=== PATIENT | female | born 1955 | race Caucasian/White ===

== ENCOUNTER → 2018-12-26 11:38 | Outpatient (CLI) | payer MEDICARE, SELFPAY ==
[2018-12-26 12:18] LABS: Basophils % 0.6 % (0.1-2.0); Eosinophils # 0.4 K/mm3 (0.0-0.4); Eosinophils % 6.1 % (0.1-12.0); Hematocrit 40.4 % (37.0-47.0); Hemoglobin 13.1 g/dL (12.2-16.2); Lymphocytes # 2.3 K/mm3 (0.7-4.5); Lymphocytes % 35.6 % (10-50); Mean Corpuscular HGB Conc 32.3 g/dL (31.8-35.4); Mean Corpuscular Volume 95.7 fl (81-99); Mean Platelet Volume 8.9 fl (7.4-10.4); Monocytes # 0.3 K/mm3 (0.1-1.0); Monocytes % 5.3 % (1.7-9.3); Neutrophils # 3.4 K/mm3 (1.8-7.8); Neutrophils % 52.3 % (37.0-80.0); Platelet Count 205 K/mm3 (142-424); Red Blood Count 4.22 M/mm3 (4.20-5.40); Red Cell Distribution Width 13.6 % (11.5-17.5); White Blood Count 6.5 K/mm3 (4.8-10.8)
[2018-12-26 14:23] LABS: Alanine Aminotransferase 15 U/L (12-78); Albumin/Globulin Ratio 1.1 (1.1-1.8); Alkaline Phosphatase 114 U/L (46-116); Aspartate Amino Transferase 13 U/L (15-37); Bilirubin,Total 0.3 mg/dL (0.2-1.0); Blood Urea Nitrogen 8 mg/dL (7-18); Calcium 9.4 mg/dL (8.5-10.1); Carbon Dioxide 30 mmol/L (21.0-32.0); Chloride 103 mmol/L (98-107); Creatinine,Serum 0.85 mg/dL (0.55-1.02); Estimated Glomerular Filt Rate 68 ml/min (>60); Free T4 (Free Thyroxine) 0.88 ng/dl (0.76-1.46); GFR (African American) 82 ML/MIN (>60); Globulin 3.7 gm/dl (1.3-3.2); Glucose 75 mg/dL (74-106); HDL Cholesterol 44 mg/dL (29-89); Sodium 141 mmol/L (136-145); Thyroid Stimulating Hormone 3.12 uIU/ml (0.358-3.740); Total Protein,Serum 7.7 gm/dL (6.4-8.2); Triglycerides 77 mg/dL (30-200); VLDL Cholesterol 15 mg/dL (0-40)
[2018-12-26 14:43] LABS: Chol/HDL Ratio 5.1 (1-3.5); Cholesterol 224 mg/dL (140-200); LDL Cholesterol 165 mg/dL (0-130)
[2018-12-28 06:07] LABS: Vitamin D 25 Hydroxy 25.3 ng/mL (30.0-100.0)
== END ==
PROVIDERS: Visit Provider Emergency Medicine
DX: I25.10 Atherosclerotic heart disease of native coronary artery without angina pectoris (principal); R53.83 Other fatigue; E55.9 Vitamin D deficiency, unspecified
CPT/HCPCS: 36415; 80053; 80061; 82652; 84439; 84443; 85025

== ENCOUNTER → 2019-01-16 09:38 | Outpatient (CLI) | payer MEDICARE, SELFPAY ==
--- NOTE | 2019-01-16 09:42 | XR_ITS ---
PROCEDURE: XR HIP LT 2-3V W/PELVIS CLINICAL INDICATION: left hip pain COMPARISON: XR HIP RT 2-3V W/PELVIS from 01/16/2019 FINDINGS: There are moderate osteoarthritic changes with osteosclerosis and osteophyte formation with some decrease in the joint space. No acute fracture or dislocation evident. IMPRESSION: Moderate osteoarthritic change Dictated by: Abiel Mary MD 01/16/2019 18:05 Electronically signed by Abiel Mary MD in [place] 01/16/2019 18:05
--- NOTE | 2019-01-16 09:42 | XR_ITS ---
PROCEDURE: XR HIP RT 2-3V W/PELVIS CLINICAL INDICATION: right hip pain COMPARISON: No exams were available for comparison FINDINGS: The there are moderate osteoarthritic changes of the right hip with osteophyte formation and osteosclerosis and some decrease in the joint space. There is diffuse vascular calcification. There is an old right inferior pubic ramus fracture. IMPRESSION: Osteoarthritis, no acute fracture Dictated by: Abiel Mary MD 01/16/2019 18:04 Electronically signed by Abiel Mary MD in [place] 01/16/2019 18:04
== END ==
PROVIDERS: PCP Emergency Medicine; Visit Provider Orthopaedic Surgery
DX: M25.552 Pain in left hip (principal); M25.551 Pain in right hip
CPT/HCPCS: 73502

== ENCOUNTER → 2019-03-09 16:46 | Outpatient (CLI) | payer MEDICARE, SELFPAY ==
[2019-03-09 18:26] LABS: Amphetamine/Metha Screen,Urine Negative ng/mL (<1000); Barbiturates Screen,Urine Negative ng/mL (<200); Benzodiazepines Screen,Urine Negative ng/mL (<200); Cannabinoid Screen,Urine Positive ng/mL (<50); Cocaine Screen,Urine Negative ng/mL (<300); Methadone Screen,Urine Negative ng/mL (<300); Opiate Screen,Urine Negative ng/mL (<300); Phencyclidine Screen,Urine Negative ng/mL (<25)
== END ==
PROVIDERS: Visit Provider Nurse Practitioner Family
DX: Z79.899 Other long term (current) drug therapy (principal)
CPT/HCPCS: 80305

== ENCOUNTER → 2019-03-13 11:58 | Outpatient (CLI) | payer MEDICARE, SELFPAY ==
[2019-03-13 14:11] LABS: Alanine Aminotransferase 10 U/L (12-78); Albumin Level 3.4 gm/dL (3.4-5.0); Alkaline Phosphatase 97 U/L (46-116); Aspartate Amino Transferase 13 U/L (15-37); Bilirubin,Direct 0.1 mg/dL (0.0-0.2); Bilirubin,Indirect 0.1 mg/dL (0.0-0.9); Bilirubin,Total 0.2 mg/dL (0.2-1.0); Chol/HDL Ratio 3.6 (1-3.5); Cholesterol 145 mg/dL (140-200); HDL Cholesterol 40 mg/dL (29-89); LDL Cholesterol 80 mg/dL (0-130); Total Protein,Serum 6.8 gm/dL (6.4-8.2); Triglycerides 126 mg/dL (30-200); VLDL Cholesterol 25 mg/dL (0-40)
== END ==
PROVIDERS: Urology; Visit Provider Nurse Practitioner Family
DX: E78.2 Mixed hyperlipidemia (principal); G25.81 Restless legs syndrome; I10 Essential (primary) hypertension; I25.10 Atherosclerotic heart disease of native coronary artery without angina pectoris; K21.9 Gastro-esophageal reflux disease without esophagitis; R06.09 Other forms of dyspnea; R94.31 Abnormal electrocardiogram [ECG] [EKG]
CPT/HCPCS: 36415; 80061; 80076

== ENCOUNTER → 2019-03-19 13:14 | Outpatient (CLI) | payer MEDICARE, SELFPAY ==
--- NOTE | 2019-03-19 13:14 | CA_ITS ---
APPROVED REPORT EXAM: Comprehensive 2D, Doppler, and color-flow Echocardiogram Staff Attorney: Sonia Braden CRT Ht: 5 ft 5 in Wt: 115lbs BSA: 1.56 BP: 139/71 mmHg ICD: SOB, CAD, ABN EKG Indications: SOB,CAD,ABN EKG 2D Dimensions LVOT 1.91 cm (M/F) 1.5-2.5 M-Mode Dimensions RVDd 1.95 cm (0.9-2.6) LVDd 3.54 cm (3.5-5.7) LVDs 2.24 cm (3.5-5.7) IVSd 1.39 cm (0.6-1.1) PWd 1.02 cm (0.6-1.1) EF (Teich) 67.50% FS 36.70% EDV (Teich) 52.30 mL ESV (Teich) 17.00 mL LV Diastology E/A Ratio 0.78 Mitral Valve MV A Velocity 72.00 (40-130 cm/s) Left Ventricle Left atrium is mildly enlarged, left ventricle is normal size, mild concentric left ventricular hypertrophy, visually estimated ejection fraction 55% with no regional wall motion abnormality, grade 1 diastolic dysfunction seen without tissue Doppler evidence of raise left atrial pressure. Right Ventricle Right atrium and right ventricular normal size and contractility. Aortic Valve Aortic valve is thickened and calcified leaflet continue to display good mobility, there is no aortic stenosis or aortic insufficiency. Mitral Valve Mitral valve is grossly normal, there is mild mitral regurgitation. Tricuspid Valve Tricuspid valve is grossly normal, there is mild tricuspid regurgitation, tricuspid regurgitation jet velocity is inadequate for calculation of the right ventricular systolic pressure. Pulmonic Valve Pulmonic valve is poorly visualized. Great Vessels Aortic root is normal size. Pericardium No significant pericardial effusion noted. Conclusion 1. Mildly enlarged left atrium, normal left ventricular size, mild concentric left ventricular hypertrophy, visually estimated ejection fraction 55% with no regional wall motion abnormality, grade 1 diastolic dysfunction seen without tissue Doppler evidence of raise left atrial pressure. 2. Mild mitral and tricuspid regurgitation. 3. No significant pericardial effusion noted. Electronically signed by : Caden Nails, 03/20/2019 06:16:13
== END ==
PROVIDERS: PCP Emergency Medicine; Visit Provider Urology
DX: E78.2 Mixed hyperlipidemia (principal); G25.81 Restless legs syndrome; I10 Essential (primary) hypertension; I25.10 Atherosclerotic heart disease of native coronary artery without angina pectoris; K21.9 Gastro-esophageal reflux disease without esophagitis; R06.09 Other forms of dyspnea; R94.31 Abnormal electrocardiogram [ECG] [EKG]
CPT/HCPCS: 93306

== ENCOUNTER → 2019-03-28 16:33 | Outpatient (CLI) | payer MEDICARE, SELFPAY ==
[2019-03-28 19:38] LABS: Amphetamine/Metha Screen,Urine Negative ng/mL (<1000); Barbiturates Screen,Urine Negative ng/mL (<200); Benzodiazepines Screen,Urine Positive ng/mL (<200); Cannabinoid Screen,Urine Positive ng/mL (<50); Cocaine Screen,Urine Negative ng/mL (<300); Methadone Screen,Urine Negative ng/mL (<300); Opiate Screen,Urine Negative ng/mL (<300); Phencyclidine Screen,Urine Negative ng/mL (<25)
[2019-04-02 09:10] LABS: Alprazolam Negative (Cutoff=100); Benzodiazepines Positive ng/mL (Cutoff=100); Clonazepam Negative (Cutoff=100); Flurazepam Negative (Cutoff=100); Lorazepam Negative (Cutoff=100); Midazolam Negative (Cutoff=100); Temazepam Positive (.); Triazolam Negative (Cutoff=100)
== END ==
PROVIDERS: Visit Provider Nurse Practitioner Family
DX: Z79.899 Other long term (current) drug therapy (principal)
CPT/HCPCS: 80305; 80346

== ENCOUNTER → 2020-01-21 11:27 | Outpatient (CLI) | payer MEDICARE, SELFPAY ==
--- NOTE | 2020-01-21 11:33 | XR_ITS ---
PROCEDURE: XR CHEST 2V CLINICAL HISTORY: dyspnea COMPARISON: No exams were available for comparison FINDINGS: The cardiomediastinal silhouette and pulmonary vascularity are within normal limits. COPD. Hyperexpansion. Coronary artery stent is noted. Severe wedge compression changes involve L1 No acute bony abnormalities. IMPRESSION: COPD. Severe wedge compression of L1. Dictated by: Abiel Mary MD 01/21/2020 13:08 Abiel Mary MD in [place] 01/21/2020 13:08
--- NOTE | 2020-01-21 11:33 | XR_ITS ---
PROCEDURE: XR HIP RT 2-3V W/PELVIS CLINICAL INDICATION: bilateral hip pain COMPARISON: CR XR HIP RT 2-3V W/PELVIS from 01/16/2019 CR XR HIP LT 2-3V W/PELVIS from 01/16/2019 FINDINGS: There is diffuse vascular calcification. Moderate osteoarthritic changes are present involving the right hip similar to the previous exam. No acute fracture or dislocation. No lytic or blastic change. IMPRESSION: Moderate osteoarthritis of the right hip not significantly changed Dictated by: Abiel Mary MD 01/21/2020 13:14 Abiel Mary MD in [place] 01/21/2020 13:14
--- NOTE | 2020-01-21 11:33 | XR_ITS ---
PROCEDURE: XR HIP LT 2-3V W/PELVIS CLINICAL INDICATION: hip pain COMPARISON: CR XR HIP RT 2-3V W/PELVIS from 01/16/2019 CR XR HIP LT 2-3V W/PELVIS from 01/16/2019 FINDINGS: There are moderate to severe osteoarthritic changes of the left hip with osteophyte formation and osteosclerosis. Surgical clips are present in the central left pelvis. There is diffuse vascular calcification. IMPRESSION: Moderate to severe osteoarthritis of the left hip overall not significantly changed Dictated by: Abiel Mary MD 01/21/2020 13:15 Abiel Mary MD in [place] 01/21/2020 13:15
--- NOTE | 2020-01-21 11:33 | XR_ITS ---
PROCEDURE: XR LUMBAR SPINE 2-3V CLINICAL INDICATION: back pain COMPARISON: No exams were available for comparison FINDINGS: There is severe wedge compression changes involving the L1 vertebral body which appears chronic. There is loss of height centrally of greater than 50 percent and anteriorly of approximately 50 percent. There does appear to be retropulsion of the posterior superior aspect the L1 vertebral body into the spinal canal. Is difficult to determine just how much retropulsion due to slight rotation. The remaining lumbar spine has an unremarkable appearance. There is degenerative disc disease at L1-L2. Incidental vascular calcification is present. Mild dextroscoliosis IMPRESSION: Chronic severe wedge compression changes of L1 with retropulsion of the posterior superior aspect of the L1 vertebral body. Cannot determine the exact degree of retropulsion due to rotation. Consider MRI for more thorough evaluation and to determine any degree of neural impingement. Dictated by: Abiel Mary MD 01/21/2020 13:06 Abiel Mary MD in [place] 01/21/2020 13:06
== END ==
PROVIDERS: PCP Emergency Medicine; Visit Provider Orthopaedic Surgery
DX: M25.551 Pain in right hip (principal); M25.552 Pain in left hip; R06.00 Dyspnea, unspecified; M54.9 Dorsalgia, unspecified
CPT/HCPCS: 71046; 72100; 73502

== ENCOUNTER → 2020-02-11 16:56 | Outpatient (CLI) | payer MEDICARE, SELFPAY ==
[2020-02-11 17:17] LABS: Basophils # 0.1 K/mm3 (0-0.2); Basophils % 0.5 % (0.1-2.0); Eosinophils # 0.2 K/mm3 (0.0-0.4); Eosinophils % 1.5 % (0.1-12.0); Hematocrit 31.6 % (37.0-47.0); Hemoglobin 10.2 g/dL (12.2-16.2); Lymphocytes # 2.3 K/mm3 (0.7-4.5); Lymphocytes % 21.5 % (10-50); Mean Corpuscular HGB Conc 32.3 g/dL (31.8-35.4); Mean Corpuscular Hemoglobin 31.1 pg (27.0-31.2); Mean Corpuscular Volume 96.3 fl (81-99); Mean Platelet Volume 10.3 fl (7.4-10.4); Monocytes # 0.6 K/mm3 (0.1-1.0); Monocytes % 5.4 % (1.7-9.3); Neutrophils # 7.7 K/mm3 (1.8-7.8); Platelet Count 231 K/mm3 (142-424); Red Blood Count 3.28 M/mm3 (4.20-5.40); Red Cell Distribution Width 14.1 % (11.5-17.5); White Blood Count 10.9 K/mm3 (4.8-10.8)
[2020-02-11 17:52] LABS: Erythrocyte Sedimentation Rate 73 mm/hr (0-30)
[2020-02-11 18:13] LABS: Chloride 102 mmol/L (98-107)
[2020-02-11 18:14] LABS: Sodium 138 mmol/L (136-145)
[2020-02-11 18:16] LABS: Alanine Aminotransferase 7 U/L (12-78); Albumin Level 3.8 g/dl (3.5-5.0); Albumin/Globulin Ratio 1.3 (1.1-1.8); Alkaline Phosphatase 82 U/L (38-126); Aspartate Amino Transferase 19 U/L (14-36); Bilirubin,Total 0.3 mg/dl (0.2-1.3); Blood Urea Nitrogen 11 mg/dl (7-17); Carbon Dioxide 30 mmol/L (22.0-30.0); Cholesterol 103 mg/dl (140-200); Estimated Glomerular Filt Rate 63 ml/min (>60); GFR (African American) 77 ML/MIN (>60); Total Protein,Serum 6.8 g/dl (6.3-8.2); Triglycerides 75 mg/dl (30-150); VLDL Cholesterol 15 mg/dL (0-40)
[2020-02-11 18:17] LABS: Calcium 9.5 mg/dl (8.4-10.2); Chol/HDL Ratio 2.4 (1-3.5); Glucose 110 mg/dl (74-100); HDL Cholesterol 43 mg/dl (40-60)
[2020-02-11 18:23] LABS: C-Reactive Protein 0.5 mg/L (0-4)
[2020-02-11 18:28] LABS: Coronavirus 19 IgG Antibody Negative (Negative); Coronavirus 19 IgM Antibody Negative (Negative)
[2020-02-11 18:28] LABS: Direct LDL Cholesterol 49.84 mg/dL (100-129)
[2020-02-11 18:35] LABS: Free T4 (Free Thyroxine) 0.84 ng/dl (0.78-2.19)
[2020-02-11 18:49] LABS: Thyroid Stimulating Hormone 9.93 uIU/mL (0.465-4.68)
== END ==
PROVIDERS: Emergency Medicine; Visit Provider Surgery
DX: E78.5 Hyperlipidemia, unspecified (principal); R06.00 Dyspnea, unspecified; Z03.818 Encounter for observation for suspected exposure to other biological agents ruled out
CPT/HCPCS: 36415; 80053; 80061; 84439; 84443; 85025; 85651; 86140; 86328

== ENCOUNTER → 2020-02-18 16:25 | Outpatient (CLI) | payer MEDICARE, SELFPAY ==
[2020-02-18 19:30] LABS: Coronavirus 19 IgG Antibody Negative (Negative); Coronavirus 19 IgM Antibody Negative (Negative)
== END ==
PROVIDERS: Visit Provider Surgery
DX: Z01.89 Encounter for other specified special examinations (principal); Z12.11 Encounter for screening for malignant neoplasm of colon
CPT/HCPCS: 36415; 86328

== ENCOUNTER 2020-02-19 09:38 | Day surgery (SDC) | payer MEDICARE, SELFPAY ==
[2020-02-14 16:01] VITALS: BMI 15.6
--- NOTE | 2020-02-19 10:27 | HMH.GSPN ---
Subjective Narrative: Patient presented for her rescheduled colonoscopy drinking coffee. She states that she had not taken the second portion of her bowel preparation and her last bowel movement was approximately 12 hours ago and was solid. Therefore her case will be canceled.
== END 2020-02-19 10:38 ==
LOC: OUTP 09:40
PROVIDERS: PCP Emergency Medicine; Visit Provider Surgery
PROC: 0DJD8ZZ Inspection of Lower Intestinal Tract, Via Natural or Artificial Opening Endoscopic (ICD-10-PCS; CPT 45378; principal; 2020-02-19 10:30)
DX: Z53.20 Procedure and treatment not carried out because of patient's decision for unspecified reasons (principal); R19.7 Diarrhea, unspecified; R63.4 Abnormal weight loss; Z68.1 Body mass index [BMI] 19.9 or less, adult
CPT/HCPCS: 45378

== ENCOUNTER → 2020-03-13 11:56 | Outpatient (CLI) | payer MEDICARE, SELFPAY ==
--- NOTE | 2020-03-13 | CA_ITS ---
APPROVED REPORT Exam: Pharmacologic Technologist: Yudi Allen, Ht: 5 ft 5 in Wt: 89 lbs BSA: 1.40 m2 HR: 53 bpm BP: 134/73 mmHg Rhythm: SINUS BRADYCARDIA,NS ST ABNS Medical History Medical History: HTN, Hyperlipidemia Medications: Atenolol,,,,, Asa,,,,, Trazadone,,,,, Gabapentin,,,,, Atorvastatin,,,,, Benazepril,,,,, Albuterol,,,,, Sertraline,,,,, BREo,,,,, LiNZESS,,,,, BuPROPRION,,,,, Allergies: VICODEN Cardiac Risk Factors: HTN, Hyperlipidemia, Smoking Stress Test Details Test: LEXISCAN HR Resting HR: 55 bpm Max Heart Rate (APMHR): 156 bpm Max HR Achieved: 85 bpm Target HR (85% APMHR): 132 bpm % of APMHR: 54 Recovery HR: 72 bpm BP Resting BP: 134.0/73.0 mmHg Max BP: 160.0/82.0 mmHg Recovery BP: 142.0/73.0 mmHg ECG Resting ECG: SINUS BRADYCARDIA,NS ST ABNORMALITIES Clinical Exercise duration: 04:14 min Highest Stage Achieved: Stress ECG Conclusion DURING INFUSION PATIENT HAD MILD SOA AND MALAISE. NO CHEST PAIN. NO ARRHYTHMIAS/ECTOPY. MILD EXAGGERATION OF BASELINE ST ABNORMALITIES. UNREMARKABLE LEXISCAN STRESS. MYOVIEW IMAGES REPORTED SEPARATELY. Electronically signed by : Caden Nails, 03/13/2020 16:18:34
--- NOTE | 2020-03-13 11:56 | NM_ITS ---
APPROVED REPORT Exam: Nuclear Stress Test Indication: CAD, 2 STENTS, HTN, HYPERLIPIDEMIA, TOB USE, FM HX, SOB, ABN EKG Patient Location: Outpatient Stress Tech: Sarah Rodriguez [place] Tech:Lizeth Sparks JENNIFER RT(R)(N) Ht: 5 ft 5 in Wt: 89 lbs Bra Size: 36B HR: 53 bpm BP: 134/73 mmHg BSA: 1.40 m2 BMI: 14.8 History: CAD, 2 STENTS, HTN, HYPERLIPIDEMIA, TOB USE, FM HX, SOB, ABN EKG Procedure: Patient received a 0.4 mg of intravenous Lexiscan, resting heart rate 53 bpm, resting blood pressure 134/73 mmHg, with Lexiscan maximum heart rate achived was 82 bpm which is Less than 85 % of the maximum predicted heart rate and blood pressure was 160/82 mmHg. With Lexiscan, patient denied any complaint of chest pain. Electrocardiogram Resting electrocardiogram showed sinus rhythm, with Lexiscan there is less than 1.[address] segment depression noted from the baseline EKG. The EKG portion of the Lexiscan Myoview is nondiagnostic. Cardiac Stress and Resting SPECT Images: Cardiac Stress and Resting SPECT images were obtained using technetium 99m Myoview 31.6 mCi stress and 10.71 mCi at rest. Gated SPECT for analysis of segmental wall motion and calculation of the ejection fraction also done. Cardiac stress and resting SPECT images show uniform myocardial activity without segmental perfusion abnormality, computer derived ejection fraction is 53% with no regional wall motion abnormality, right ventricle is normal size and contractility. Conclusion: 1. The EKG portion of the Lexiscan Myoview is nondiagnostic. 2. No scintigraphic evidence of reversible ischemia seen, computer derived ejection fraction is 53% with no regional wall motion abnormality, right ventricle is normal size and contractility. 3. Normal Lexiscan Myoview study. Electronically signed by : Caden Nails, 03/13/2020 16:23:53
--- NOTE | 2020-03-13 14:18 | HMH.ITSHM ---
Current Home Medications as stated by this patient Lynsey Farooq or counter sales representative. [] asa atenolol atorvastin gabapentin
== END ==
PROVIDERS: PCP Emergency Medicine; Visit Provider Internal Medicine Cardiovascular Disease
DX: E78.5 Hyperlipidemia, unspecified (principal); I10 Essential (primary) hypertension; I25.10 Atherosclerotic heart disease of native coronary artery without angina pectoris; K21.9 Gastro-esophageal reflux disease without esophagitis; R06.00 Dyspnea, unspecified; R94.31 Abnormal electrocardiogram [ECG] [EKG]; Z01.810 Encounter for preprocedural cardiovascular examination
CPT/HCPCS: 78452; 93017; A9502; J2785

== ENCOUNTER → 2020-04-09 10:23 | Outpatient (CLI) | payer MEDICARE, SELFPAY ==
[2020-04-09 12:14] LABS: Alanine Aminotransferase 9 U/L (12-78); Albumin Level 3.8 g/dl (3.5-5.0); Alkaline Phosphatase 132 U/L (38-126); Aspartate Amino Transferase 20 U/L (14-36); Bilirubin,Direct 0.2 mg/dl (0.0-0.4); Bilirubin,Total 0.2 mg/dl (0.2-1.3); Total Protein,Serum 6.6 g/dl (6.3-8.2)
[2020-04-09 19:04] LABS: Basophils % 0.6 % (0.1-2.0); Eosinophils # 0.2 K/mm3 (0.0-0.4); Hematocrit 29.1 % (37.0-47.0); Lymphocytes # 1.9 K/mm3 (0.7-4.5); Lymphocytes % 26.4 % (10-50); Mean Corpuscular HGB Conc 30.9 g/dL (31.8-35.4); Mean Corpuscular Hemoglobin 28.9 pg (27.0-31.2); Mean Corpuscular Volume 93.7 fl (81-99); Mean Platelet Volume 12.2 fl (7.4-10.4); Monocytes # 0.3 K/mm3 (0.1-1.0); Monocytes % 4.5 % (1.7-9.3); Neutrophils # 4.7 K/mm3 (1.8-7.8); Neutrophils % 65.5 % (37.0-80.0); Platelet Count 169 K/mm3 (142-424); Red Blood Count 3.11 M/mm3 (4.20-5.40); Red Cell Distribution Width 15.3 % (11.5-17.5); White Blood Count 7.2 K/mm3 (4.8-10.8)
[2020-04-09 19:41] LABS: T4 (Thyroxine) 7.8 ug/dl (5.53-11.0)
[2020-04-09 19:55] LABS: Thyroid Stimulating Hormone 2.37 uIU/mL (0.465-4.68)
== END ==
PROVIDERS: Urology; Visit Provider Emergency Medicine
DX: E78.5 Hyperlipidemia, unspecified (principal); I10 Essential (primary) hypertension; I25.10 Atherosclerotic heart disease of native coronary artery without angina pectoris; K21.9 Gastro-esophageal reflux disease without esophagitis; R06.09 Other forms of dyspnea; Z72.0 Tobacco use; D64.9 Anemia, unspecified; R79.89 Other specified abnormal findings of blood chemistry
CPT/HCPCS: 36415; 80076; 84436; 84443; 85025

== ENCOUNTER → 2020-04-14 13:11 | Outpatient (CLI) | payer MEDICARE, SELFPAY ==
[2020-04-14 13:30] LABS: Basophils # 0.1 K/mm3 (0-0.2); Basophils % 0.9 % (0.1-2.0); Eosinophils # 0.3 K/mm3 (0.0-0.4); Eosinophils % 3.2 % (0.1-12.0); Hematocrit 31.3 % (37.0-47.0); Hemoglobin 9.8 g/dL (12.2-16.2); Lymphocytes # 3.6 K/mm3 (0.7-4.5); Lymphocytes % 38.4 % (10-50); Mean Corpuscular HGB Conc 31.3 g/dL (31.8-35.4); Mean Corpuscular Hemoglobin 28.4 pg (27.0-31.2); Mean Corpuscular Volume 90.6 fl (81-99); Mean Platelet Volume 10.3 fl (7.4-10.4); Monocytes # 0.5 K/mm3 (0.1-1.0); Monocytes % 5.7 % (1.7-9.3); Neutrophils # 4.8 K/mm3 (1.8-7.8); Neutrophils % 51.9 % (37.0-80.0); Platelet Count 224 K/mm3 (142-424); Red Blood Count 3.45 M/mm3 (4.20-5.40); Red Cell Distribution Width 15.6 % (11.5-17.5); White Blood Count 9.3 K/mm3 (4.8-10.8)
== END ==
PROVIDERS: Visit Provider Emergency Medicine
DX: R79.9 Abnormal finding of blood chemistry, unspecified (principal)
CPT/HCPCS: 36415; 85025

== ENCOUNTER → 2020-04-30 09:01 | Outpatient (CLI) | payer MEDICARE, SELFPAY ==
[2020-04-30 12:16] LABS: Anion Gap 14.1 mEq/L (5-15); Blood Urea Nitrogen 13 mg/dl (7-17); Calcium 10.1 mg/dl (8.4-10.2); Carbon Dioxide 26 mmol/L (22.0-30.0); Chloride 106 mmol/L (98-107); Estimated Glomerular Filt Rate 72 ml/min (>60); GFR (African American) 87 ML/MIN (>60); Glucose 93 mg/dl (74-100); Potassium 4.1 mmoL/L (3.5-5.1); Sodium 142 mmol/L (136-145)
== END ==
PROVIDERS: Visit Provider Emergency Medicine
DX: I10 Essential (primary) hypertension (principal)
CPT/HCPCS: 36415; 80048

== ENCOUNTER → 2020-05-09 15:20 | Outpatient (CLI) | payer MEDICARE, SELFPAY ==
[2020-05-09 16:29] LABS: Basophils % 0.6 % (0.1-2.0); Eosinophils # 0.1 K/mm3 (0.0-0.4); Eosinophils % 1.5 % (0.1-12.0); Hematocrit 30.6 % (37.0-47.0); Hemoglobin 9.7 g/dL (12.2-16.2); Mean Corpuscular HGB Conc 31.7 g/dL (31.8-35.4); Mean Corpuscular Hemoglobin 27.7 pg (27.0-31.2); Mean Corpuscular Volume 87.4 fl (81-99); Mean Platelet Volume 10.6 fl (7.4-10.4); Monocytes # 0.5 K/mm3 (0.1-1.0); Monocytes % 5.9 % (1.7-9.3); Neutrophils # 5.2 K/mm3 (1.8-7.8); Platelet Count 156 K/mm3 (142-424); White Blood Count 7.8 K/mm3 (4.8-10.8)
[2020-05-09 16:30] LABS: Alanine Aminotransferase 12 U/L (12-78); Albumin Level 4.5 g/dl (3.5-5.0); Albumin/Globulin Ratio 1.3 (1.1-1.8); Alkaline Phosphatase 117 U/L (38-126); Anion Gap 14.8 mEq/L (5-15); Aspartate Amino Transferase 21 U/L (14-36); Bilirubin,Total 0.3 mg/dl (0.2-1.3); Blood Urea Nitrogen 10 mg/dl (7-17); Calcium 9.6 mg/dl (8.4-10.2); Carbon Dioxide 25 mmol/L (22.0-30.0); Chloride 103 mmol/L (98-107); Estimated Glomerular Filt Rate 50 ml/min (>60); GFR (African American) 61 ML/MIN (>60); Globulin 3.5 g/dL (1.3-3.2); Glucose 105 mg/dl (74-100); Potassium 3.8 mmoL/L (3.5-5.1); Sodium 139 mmol/L (136-145)
[2020-05-09 17:34] LABS: Coronavirus 19 IgG Antibody Negative (Negative); Coronavirus 19 IgM Antibody Negative (Negative)
== END ==
PROVIDERS: PCP Emergency Medicine; Visit Provider Orthopaedic Surgery
DX: Z01.818 Encounter for other preprocedural examination (principal); Z11.52 Encounter for screening for COVID-19; M16.11 Unilateral primary osteoarthritis, right hip
CPT/HCPCS: 36415; 80053; 81001; 85025; 86328; 86850

== ENCOUNTER 2020-05-12 11:43 | Inpatient (IN) | payer MEDICARE, SELFPAY ==
[2020-05-06 09:56] VITALS: BMI 15.6
[2020-05-12] VITALS (19 sets, daily range): BP systolic 103–147; BP diastolic 50–85; PULSE 40–63; RESP 12–23; TEMP 36.1–43; O2SAT 92–100
[2020-05-12 08:56] LABS: Microscopic, Urine URINE MICROSCOPIC (MICROSCOPIC)
[2020-05-12 09:03] LABS: Appearance,Urine CLEAR (Clear); Bilirubin,Urine Negative (Negative); Blood, Urine Negative (Negative); Color,Urine YELLOW (Yellow); Glucose,Urine (UA) Negative (Negative); Ketones,Urine Negative (Negative); Leukocyte Esterase,Urine Negative (Negative); Nitrate,Urine Negative (Negative); PH,Urine 6.5 (5.0-8.5); Protein,Urine Negative (Negative); Specific Gravity, Urine 1.015 (1.005-1.030); Urobilinogen,Urine 0.2 EU/dl (0.2)
[2020-05-12 09:11] LABS: Squamous Epithelial Cell,Urine Occasional #/hpf (0-5)
--- NOTE | 2020-05-12 10:39 | HMH.ANESCL ---
[facility] Anesthesia Checklist - Structural Data Admitted From: Home Planned Operative Procedure/s: rtha Consent for Planned Operative Procedure(s) Verified: Yes - Additional verifications Anesthesia Reactions: No Hx Blood Transfusions: No Blood Transfusion Reaction: No - Airway Assessment C-Spine Mobility Assessed: Yes TMJ Mobility Assessed: Yes Dentition: Good Dentition - Neurological Assessment Level of Consciousness: Awake, Alert, Appropriate - Anesthesia Plan Anesthesia Risk discussed: Yes Anesthesia Plan: Verified ASA Class: III Anesthesia Type: MAC w/Spinal [facility] History I have reviewed the patient's past medical history: Yes Medical History: Reports:: Anxiety, Coronary Artery Disease, Depression, Gastroesophageal Reflux Disease(GERD), Hyperlipidemia, Hypertension Denies:: Cancer, Diabetes Mellitus Type 1, Diabetes Mellitus Type 2, Internal Pacemaker, MRSA, Seizures *Have you ever received a pneumonia vaccine?: No *Have you received a flu vaccine this season?: No Other Medical History: Reports: Arthritis. Denies: Blood Transfusion Reaction Anesthesia experience/problems:: none Laterality Cases: Left: Other, Bilateral: Cataract Other Surgeries: Yes: Cardiac Catheterization, Colonoscopy, Coronary Stent, Hysterectomy-Total, Other (eye surgery). No: Pacemaker Amputation: No Fractures: Yes (back fx) - *Social History Last grade of school completed: 7th or 8th Smoking Status: Current every day smoker Tobacco Type: cigarettes # Packs/Day (cigarettes): 1 #Yrs smoked (if former smoker): 40 Alcohol Intake: current Alcohol Intake Frequency:: holidays/special occasions only Substance Use Type: marijuana *Occupational Status:: disabled Housing: house Household Members: other *Travel in the last 8 weeks: None - Psychiatric History Pschychiatric History:: Reports:: Anxiety, Depression Family Hx:: Cancer, Coronary Artery Disease, Diabetes, Hyperlipidemia, Hypertension, Alcoholism
[2020-05-12 11:04] LABS: Microscopic,Cath URINE MICROSCOPIC (MICROSCOPIC)
[2020-05-12 11:36] LABS: Appearance,Urine/Cath CLEAR (Clear); Bilirubin,Cath Negative (Negative); Blood, Urine/Cath Negative (Negative); Color,Urine/Cath YELLOW (Yellow); Glucose,Urine/Cath (UA) Negative (Negative); Ketones,Urine/Cath Negative (Negative); Leukocyte Esterase,Cath Negative (Negative); Nitrate,Cath Negative (Negative); PH,Urine/Cath 7.5 (5.0-8.5); Protein,Urine/Cath Negative (Negative); Urobilinogen,Cath 0.2 EU/dl (0.2)
[2020-05-12 11:44] LABS: Squamous Epithelial Ur./Cath Occasional #/hpf (0-5); WBC,Urine/Cath Occasional #/hpf (0-3)
--- NOTE | 2020-05-12 12:15 | SUR.OPER ---
1215-wound being irrigated with Betadine 17ml's mixed in NS 500ml's for total of 3 minutes per
--- NOTE | 2020-05-12 13:09 | XR_ITS ---
PROCEDURE: XR HIP RT 2-3V W/PELVIS CLINICAL INDICATION: s/p right total hip arthroplasty COMPARISON: CR XR HIP LT 2-3V W/PELVIS from 01/21/2020 FINDINGS: Status post right total hip replacement with good alignment. Soft tissue gas is noted. The acetabular screw projects beyond the rim of the acetabulum into the adjacent soft tissues. Taylor catheter is present. IMPRESSION: Status post total hip replacement with good alignment. Dictated by: Abiel Mary MD 05/12/2020 15:09 Abiel Mary MD in [place] 05/12/2020 15:09
--- NOTE | 2020-05-12 13:09 | P.PN_ITS ---
[facility] Anesthesia Record Part I Intake, IV Amount: 2,300 Estimated blood loss (mL): 200 Urine output (mL): 300 Blood Pressure: 120/50 SaO2: 94 Pulse Rate: 63 Respiratory Rate: 12 Temperature: 97 F Patient is:: Awake, Stable Stable to PACU at:: 13:05
--- NOTE | 2020-05-12 14:22 | HMH.ORTHHP ---
*Admission Date: 05/12/20 *Reason for consult:: Osteoarthritis, right hip-s/p total hip arthroplasty *History of present illness: Patient is a 65-year-old female who has osteoarthritis of her right hip unresponsive to conservative management. She was admitted to hospital following an uncomplicated primary right t total hip arthroplasty today. She has had bilateral hip pain for many years which have gradually gotten worse. She localizes the pain to anterior and lateral aspects of both hip joints with radiation into both thighs. She says her symptoms are worse on the right side than the left. She rates her right hip pain a constant 7 out of 10 and a 10 out of 10 at its worst. She states she has tried physical therapy, local steroid injections, NSAIDs, icing and heat in the past with little to no relief. She states walking, twisting, turning and standing for long periods aggravate her pain. She reports night pain and sleep disturbance. She reports difficulty with activities of daily living and she uses a cane to walk with. She also reports the right side giving out frequently and is at risk of falls and injuring herself. She says she can barely walk 100 yards without discomfort. No history of any previous hip surgery. No history of any knee pain on either side. She reports occasional low back pain that occasionally radiates down the back of her thigh to her foot on the right side. No history of any neurological deficits distally. She states she is disabled due to her eye surgery and does not work. Her medical history includes hypertension, hyperlipidemia, vitamin D deficiency, osteoporosis, GERD, coronary artery disease, neuropathic pain and chronic tobacco abuse. She is a current everyday smoker for a long time. She has history of chronic hep C. A right total hip arthroplasty is indicated to reduce the risk of falls, improve her pain, mobility and quality of life. The surgical and nonsurgical alternatives were discussed in detail with the patient as well as the risks and benefits of the surgery. Please refer to my office note for full details. [facility] History I have reviewed the patient's past medical history: Yes Medical History: Reports:: Anxiety, Coronary Artery Disease, Depression, Gastroesophageal Reflux Disease(GERD), Hyperlipidemia, Hypertension Denies:: Cancer, Diabetes Mellitus Type 1, Diabetes Mellitus Type 2, Internal Pacemaker, MRSA, Seizures *Have you ever received a pneumonia vaccine?: No *Have you received a flu vaccine this season?: No Other Medical History: Reports: Arthritis. Denies: Blood Transfusion Reaction Anesthesia experience/problems:: none Laterality Cases: Left: Other, Bilateral: Cataract Other Surgeries: Yes: Cardiac Catheterization, Colonoscopy, Coronary Stent, Hysterectomy-Total, Other (eye surgery). No: Pacemaker Amputation: No Fractures: Yes (back fx) - *Social History Last grade of school completed: 7th or 8th Smoking Status: Current every day smoker Tobacco Type: cigarettes # Packs/Day (cigarettes): 1 #Yrs smoked (if former smoker): 40 Alcohol Intake: current Alcohol Intake Frequency:: holidays/special occasions only Substance Use Type: marijuana *Occupational Status:: disabled Housing: house Household Members: other *Travel in the last 8 weeks: None - Psychiatric History Pschychiatric History:: Reports:: Anxiety, Depression Family Hx:: Cancer, Coronary Artery Disease, Diabetes, Hyperlipidemia, Hypertension, Alcoholism Review of Systems - Review of Systems Review of systems:: pertinent systems reviewed and negative unless documented below - Constitutional Denies anorexia, Denies chills, Denies fever(s) - Eyes Denies change in vision - ENT Denies abnormal hearing, Denies bleeding gums, Denies dizziness, Denies nosebleed, Denies mouth lesions - *Cardiovascular Denies chest pain, Denies shortness of breath - *Respiratory Denies chest congestion, Denies cough, Denies shortness of breath - *Gastrointesti
--- NOTE | 2020-05-12 14:28 | PC.NURSE ---
1413 Pt alert but drowsy, SaO2 in 91-93% range at this time. 2L O2 applied via NC with SaO2 increasing to 99%.
--- NOTE | 2020-05-12 14:29 | PC.NURSE ---
1324 Report received from Vince Odonnell RN in PACU.
--- NOTE | 2020-05-12 14:45 | HMH.OPNOTE ---
Date of procedure: 05/12/20 Pre-op Diagnosis:: Osteoarthritis, right hip Post-op Diagnosis:: Same Procedure performed:: Uncemented total hip arthroplasty, right hip Surgeon:: Adelfo Collins MD Support Group Manager(s):: Lizeth Silverio JEWEL STRINGER:: Jones Ray Anesthesia: spinal Estimated blood loss (mL): 200 Clinical Note:: Patient is a 65-year-old female who has osteoarthritis of her right hip unresponsive to conservative management. She has had bilateral hip pain for many years which have gradually gotten worse. She localizes the pain to anterior and lateral aspects of both hip joints with radiation into both thighs. She says her symptoms are worse on the right side than the left. She rates her right hip pain a constant 7 out of 10 and a 10 out of 10 at its worst. She states she has tried physical therapy, local steroid injections, NSAIDs, icing and heat in the past with little to no relief. She states walking, twisting, turning and standing for long periods aggravate her pain. She reports night pain and sleep disturbance. She reports difficulty with activities of daily living and she uses a cane to walk with. She also reports the right side giving out frequently and is at risk of falls and injuring herself. She says she can barely walk 100 yards without discomfort. No history of any previous hip surgery. No history of any knee pain on either side. She reports occasional low back pain that occasionally radiates down the back of her thigh to her foot on the right side. No history of any neurological deficits distally. She states she is disabled due to her eye surgery and does not work. Her medical history includes hypertension, hyperlipidemia, vitamin D deficiency, osteoporosis, GERD, coronary artery disease, neuropathic pain and chronic tobacco abuse. She is a current everyday smoker for a long time. She has history of chronic hep C. Radiographs confirmed moderate to severe degenerative arthritis of both hips. Radiologically the left side looks worse than the right but patient is more symptomatic from the right hip. A right total hip arthroplasty is indicated to reduce the risk of falls, improve her pain, mobility and quality of life. The surgical and nonsurgical alternatives were discussed in detail with the patient as well as the risks and benefits of the surgery. Please refer to my office note for full details. Operative findings:: Intraoperatively, moderate degenerative changes of the hip joint were noted. The femoral head is arthritic and misshapen; osteophytes were noted on acetabular side. The capsule was thickened and range of motion was noted to be decreased. The bone quality is good. Operative note:: On the day of the procedure the patient and her friend were met in the preoperative area and the patient was positively identified. A physical examination was performed and documented. The operative site was appropriately marked and initialed by me. I again reviewed the diagnosis, natural history and management options in detail including both nonsurgical and surgical. We discussed the proposed surgery, risks and benefits and alternatives in detail. The complications discussed include but are not limited to infection, injury to nerves, blood vessels and tendons, DVT and PE, fracture, limb length inequality, dislocation, implant malpositioning, implant failure, squeaking, loosening, acetabular wear, osteolysis, periprosthetic femur fracture, heterotopic ossification, abductor weakness and limp, incomplete relief of pain, likely need for further surgery in future including revision, anesthetic complications including heart attack, stroke and even . We also discussed the postoperative recovery and rehabilitation. Patient verbalized a good understanding and wished to proceed with the proposed surgery. Patient understood the risks, agreed to proceed with surgery, signed the consent form and no guarantees or assurances were given or implied. The patient wa
--- NOTE | 2020-05-12 14:47 | PC.NURSE ---
Karolina with OT in to see pt at this time.
--- NOTE | 2020-05-12 15:30 | PC.NURSE ---
1520 Pt more alert, sitting up in bed talking with visitor. SaO2 97-99%, pt had removed O2 herself. Will continue to monitor SaO2 while on room air. Pt voices that she is wanting to go outside to smoke. Pt was previously educated that [facility] is a tobacco free facility and that she is not able to leave the department per MD order. Pt is agreeable to nicotine patch, will call MD for order.
--- NOTE | 2020-05-12 15:49 | HMH.OTEV ---
OT Inpatient Evaluation Rehab OT IP Evaluation Start: 05/12/20 13:24 Freq: ONCE Status: Complete Protocol: Document 05/12/20 15:39 STEVENSONHUGO (Rec: 05/12/20 15:48 STEVENSONHUGO [id number]) Rehab OT IP Assessment Subjective History Patient is a 65-year-old female who has osteoarthritis of her right hip unresponsive to conservative management. She was admitted to hospital following an uncomplicated primary right t total hip arthroplasty today. She has had bilateral hip pain for many years which have gradually gotten worse. She localizes the pain to anterior and lateral aspects of both hip joints with radiation into both thighs. She says her symptoms are worse on the right side than the left. She rates her right hip pain a constant 7 out of 10 and a 10 out of 10 at its worst. She states she has tried physical therapy, local steroid injections, NSAIDs, icing and heat in the past with little to no relief. She states walking, twisting, turning and standing for long periods aggravate her pain. She reports night pain and sleep disturbance. She reports difficulty with activities of daily living and she uses a cane to walk with. She also reports the right side giving out frequently and is at risk of falls and injuring herself. She says she can barely walk 100 yards without discomfort. No history of any previous hip surgery. No history of any knee pain on either side. She reports occasional low back pain that occasionally radiates down the back of her thigh to her foot on the right side. No history of any
--- NOTE | 2020-05-12 15:57 | HMH.PHAVTE ---
[facility] Pharmacy VTE Monitoring - Patient Demographics Admission date: 05/12/20 Report Date: 05/12/20 Time: 15:57 Allergies/Adverse Reactions: Patient Allergies acetaminophen [From Vicodin] Adverse Reaction (Intermediate, Verified 04/30/20 09:29) Vomiting hydrocodone [From Vicodin] Adverse Reaction (Intermediate, Verified 04/30/20 09:29) Vomiting Height: 1.65 m Weight: 42.638 kg Patient Problems: Current Active Problems Osteoarthritis of right hip (Chronic) Status post total hip replacement, right (Acute) Hip pain, bilateral (Chronic) Tobacco use (Chronic) - VTE Risk VTE Score: 5 VTE Risk Level: Low Risk - Prophylaxis VTE Prophylaxis Ordered?: Yes Types of VTE Prophylaxis: IPCS Thigh High Location of Applied Device: Bilateral Lower Extremeties
--- NOTE | 2020-05-12 15:57 | HMH.PHAINT ---
MEDICATION RECONCILIATION COMPLETED ON PATIENT USING EXTERNAL FILL HISTORY FROM PHARMACY AND LIST FROM MD OFFICE. -NICHOL MADRIDD
--- NOTE | 2020-05-12 16:07 | PC.NURSE ---
1605 PT in to see patient.
--- NOTE | 2020-05-12 17:02 | HMH.PTEV ---
Physical Therapy Evaluation Rehab PT IP Evaluation Start: 05/12/20 13:24 Freq: ONCE Status: Active Protocol: Document 05/12/20 16:00 FRANKLIN (Rec: 05/12/20 17:02 [email or web address] [id number]) Subjective/History History History This is the initial IP PT evaluation for Lynsey Farooq. Pt is a 65 y/o female admitted to [facility] s/p R RY. Subjective Subjective Pt reports she still can not feel her legs from nerve block Rehab PT IP Eval Objective Appearance Patient Behavior Appropriate,Cooperative Patient Orientation Person,Place,Time Difficulty following instructions none Speech Pattern Clear,Appropriate Ambulation Patient Able to Ambulate No Balance Sitting Balance Steady, safe Dynamic Sitting Balance Ability Good Transfers Bed Transfer Ability Contact Guard/Hand Hold Chair Transfer Ability Contact Guard/Hand Hold Rehab PT IP prob,goals,plan Problems Date of Evaluation: 05/12/20 PT IP Problems Bed Mobility,Transfers,Gait, Balance,Self care,Safety Rehab Potential Rehab Potential Good Equipment Needs Assistive Devices Rolling / Wheeled Walker Plan PT Intervention Plan Bed Mobility,Transfers,Gait, Balance,Self care,Safety, Therapeutic Exercise PT Plan Frequency BID Duration LOS Discharge Goals Bed Transfer Ability Contact Guard/Hand Hold Sit to Stand Chair Transfer Ability Maximum x 1 (75% assist) Ambulation Assistive Device Rolling Walker Ambulation Distance (feet) 3 Discharge Plan PT Discharge Plan Pt will need rehab at SNF or supervision at home w/ HHPT G -code Required Yes Eval Complexity Eval Charge Codes 05881 - Low Complexity G Codes PT Current Status Mobility PT Current Status Modifier CK-At least 40% but less than 60% impaired, limited or restricted PT Goal Status Mobility PT Goal Status Modifer CK-At least 40% but less than 60% impaired, limited or restricted PHYSICIAN CERTIFICATION: I certify the specified therapy services for Lynsey Farooq are required, authorized, and reviewed every 30 days.
--- NOTE | 2020-05-12 19:19 | PC.NURSE ---
1855 Pt had large emesis at this time, unable to measure related to vomit being on pts bedside table and on the floor. Bed linens changed, assisted pt with cleaning up, gown changed. Emesis bag provided to pt. Pt reports feeling better after vomiting, recently received phenergan. Will continue to monitor.
--- NOTE | 2020-05-12 19:21 | HMH.ACPN2 ---
Internal Medicine - PN: Subj *Date: 05/12/20 *Time: 19:21 Interval history: THR today, doing well post-op except some nausea. Phenergan available. Co-morbid cad w/stents x 2 no ischemic chest pain copd quiescent Exam Vital signs and Labs for Last 24 Hours: Temp Pulse Resp BP Pulse Ox 97.4 F L 55 L 16 117/57 L 96 05/12/20 17:50 05/12/20 17:50 05/12/20 17:50 05/12/20 17:50 05/12/20 17:50 Laboratory Results - last 24 hr 05/12/20 08:30: Urine Color Yellow, Urine Appearance Clear, Urine pH 6.5, Ur Specific [place] 1.015, Urine Protein Negative, Urine Glucose (UA) Negative, Urine Ketones Negative, Urine Blood Negative, Urine Nitrate Negative, Urine Bilirubin Negative, Urine Urobilinogen 0.2, Ur Leukocyte Esterase Negative, Urine WBC 3-5, Ur Squamous Epith Cells Occasional 05/12/20 10:00: Urine Color Yellow, Urine Appearance Clear, Urine pH 7.5, Ur Specific [place] 1.010, Urine Protein Negative, Urine Glucose (UA) Negative, Urine Ketones Negative, Urine Blood Negative, Urine Nitrate Negative, Urine Bilirubin Negative, Urine Urobilinogen 0.2, Ur Leukocyte Esterase Negative, Urine RBC None, Urine WBC Occasional, Ur Squamous Epith Cells Occasional, Urine Bacteria None I & O for Last 24 hours: Intake & Output 05/09/20 05/10/20 05/11/20 05/12/20 23:59 23:59 23:59 23:59 Intake Total 2300 / 2300 Output Total 350 / 350 Balance 1950 / 1950 - Constitutional no acute distress, thin - *Routine HEENT Exam Head: Present: normocephalic Eye: Present: EOMI, PERRL ENT: Present: mucous membranes moist - *Routine Neck Exam Present: supple. Absent: lymphadenopathy - *Routine Respiratory Exam Present: decreased breath sounds, CTA bilaterally. Absent: accessory muscle use - *Routine Cardiovascular Exam Present: RRR, bradycardia - *Routine Abdominal Exam Present: soft, normoactive bowel sounds. Absent: tenderness - *Routine Extremities Exam Absent: calf tenderness - *Routine Skin Exam Present: warm. Absent: rash - *Routine Neurological Exam Present: alert, oriented X3, vision grossly intact, hearing grossly intact. Absent: facial asymmetry Assessment and Plan (1) Hip pain, bilateral Status: Chronic Category: Medical Code(s): M25.551 - Pain in right hip; M25.552 - Pain in left hip (2) Osteoarthritis of right hip Status: Chronic Category: Medical Code(s): M16.11 - Unilateral primary osteoarthritis, right hip (3) Status post total hip replacement, right Status: Acute Category: Surgical Code(s): Z96.641 - Presence of right artificial hip joint (4) Tobacco use Status: Chronic Category: Social Hx Code(s): Z72.0 - Tobacco use (5) Osteoporosis Status: Chronic Category: Medical Code(s): M81.0 - Age-related osteoporosis without current pathological fracture (6) Sinus bradycardia Status: Chronic Category: Medical Code(s): R00.1 - Bradycardia, unspecified (7) CAD (coronary artery disease) Status: Chronic Qualifiers: Coronary Disease-Associated Artery/Lesion type: [place] artery [place] vs. transplanted heart: [place] heart Associated angina: without angina Qualified Code(s): I25.10 - Atherosclerotic heart disease of [place] coronary artery without angina pectoris Category: Medical Code(s): I25.10 - Atherosclerotic heart disease of [place] coronary artery without angina pectoris - Assessment and plan all Dx Assessment and Plan for all problems:: will follow with ortho service
[2020-05-13] VITALS (17 sets, daily range): BP systolic 104–148; BP diastolic 56–74; PULSE 51–56; RESP 16–18; TEMP 36.3–37.6; O2SAT 95–100
--- NOTE | 2020-05-13 04:30 | PC.NURSE ---
PT HAS RESTED WELL THIS SHIFT, MEDICATED FOR PAIN X 2 THIS SHIFT. PT HAS HAD NO FURTHER EPISODES OF VOMITING SINCE START OF THIS SHIFT, VITAL SIGNS STABLE. HR BRADYCARDIC, UNCHANGED. LUNGS CTAB, PT USING INCENTIVE SPIROMETER. IV PATENT. F/C PATENT TO BSC, DARK YELLOW URINE NOTED. WILL LEAVE IN PLACE AND CONTINUE TO MONITOR OUTPUT OF THIS TIME. ABDUCTION PILLOW IN PLACE. DRESSING TO RIGHT HIP REMAINS C/D/I. BOWEL SOUNDS ACTIVE X 4 QUADS, NO FLATUS. TOLERATING REGULAR DIET. CALL LIGHT WITHIN REACH, REINFORCED FOR PT TO REMAIN IN BED. NO FURTHER NEEDS AT THIS TIME
[2020-05-13 08:08] LABS: Anion Gap 8.1 mEq/L (5-15); Blood Urea Nitrogen 10 mg/dl (7-17); Calcium 8.2 mg/dl (8.4-10.2); Carbon Dioxide 28 mmol/L (22.0-30.0); Chloride 100 mmol/L (98-107); Creatinine Clearance Estimated 38 mL/min (50-200); Estimated Glomerular Filt Rate 63 ml/min (>60); GFR (African American) 76 ML/MIN (>60); Glucose 90 mg/dl (74-100); Potassium 4.1 mmoL/L (3.5-5.1); Sodium 132 mmol/L (136-145)
[2020-05-13 08:11] LABS: Basophils % 0.3 % (0.1-2.0); Eosinophils # 0.1 K/mm3 (0.0-0.4); Eosinophils % 1.7 % (0.1-12.0); Hematocrit 24.1 % (37.0-47.0); Lymphocytes % 30.4 % (10-50); Mean Corpuscular HGB Conc 32.4 g/dL (31.8-35.4); Mean Corpuscular Hemoglobin 27.7 pg (27.0-31.2); Mean Corpuscular Volume 85.6 fl (81-99); Mean Platelet Volume 10.2 fl (7.4-10.4); Monocytes # 0.4 K/mm3 (0.1-1.0); Monocytes % 5.8 % (1.7-9.3); Neutrophils # 4.1 K/mm3 (1.8-7.8); Neutrophils % 61.8 % (37.0-80.0); Platelet Count 161 K/mm3 (142-424); Red Blood Count 2.82 M/mm3 (4.20-5.40); Red Cell Distribution Width 16.5 % (11.5-17.5); White Blood Count 6.6 K/mm3 (4.8-10.8)
[2020-05-13 08:13] LABS: Hemoglobin 7.8 g/dL (12.2-16.2)
--- NOTE | 2020-05-13 08:49 | PC.NURSE ---
Lab personnel at bedside for crossmatch.
--- NOTE | 2020-05-13 08:49 | PC.NURSE ---
0838 Blood transfusion consent reviewed with pt and signed.
--- NOTE | 2020-05-13 09:26 | P.PN_ITS ---
[facility] Anesthesia Record Part II Discharge Time: 13:25 Destination: floor PACU nurse assessment reviewed?: Yes Patient Condition:: Good Anesthesia Complications:: None Swallowing reflex intact?: Yes Cyanosis?: No Blood Pressure: 118/71 Pulse Rate: 52 Temperature: 97.4 F Mental Status: Alert & Oriented Pain level:: 2 Nausea and/or vomitting:: None Intake, IV Amount: 2,500
--- NOTE | 2020-05-13 10:02 | HMH.ACPN2 ---
Internal Medicine - PN: Subj *Date: 05/14/20 *Time: 06:51 Interval history: doing better after surg - will begin therapy Exam Vital signs and Labs for Last 24 Hours: Temp Pulse Resp BP Pulse Ox 97.4 F L 52 L 16 118/71 95 05/13/20 09:26 05/13/20 09:26 05/13/20 07:56 05/13/20 09:26 05/13/20 07:56 Laboratory Results - last 24 hr 05/12/20 10:00: Urine Color Yellow, Urine Appearance Clear, Urine pH 7.5, Ur Specific [place] 1.010, Urine Protein Negative, Urine Glucose (UA) Negative, Urine Ketones Negative, Urine Blood Negative, Urine Nitrate Negative, Urine Bilirubin Negative, Urine Urobilinogen 0.2, Ur Leukocyte Esterase Negative, Urine RBC None, Urine WBC Occasional, Ur Squamous Epith Cells Occasional, Urine Bacteria None 05/13/20 07:25: WBC 6.6, RBC 2.82 L, Hgb 7.8 L*, Hct 24.1 L, MCV 85.6, MCH 27.7, MCHC 32.4, RDW 16.5, Plt Count 161, MPV 10.2, Neut % (Auto) 61.8, Lymph % (Auto) 30.4, [place] % (Auto) 5.8, Eos % (Auto) 1.7, Baso % (Auto) 0.3, Neut # (Auto) 4.1, Lymph # (Auto) 2.0, [place] # (Auto) 0.4, Eos # (Auto) 0.1, Baso # (Auto) 0.0 05/13/20 07:25: Sodium 132 L, Potassium 4.1, Chloride 100, Carbon Dioxide 28, Anion Gap 8.1, BUN 10, Creatinine 0.90, Estimated Creat Clear 38, Estimated GFR 63, Est GFR ( Amer) 76, Glucose 90, Calcium 8.2 L 05/13/20 08:56: Crossmatch (AHG) See Detail I & O for Last 24 hours: Intake & Output 05/10/20 05/11/20 05/12/20 05/13/20 11:59 11:59 11:59 11:59 Intake Total 6805 / 6805 Output Total 1150 / 1150 Balance 5655 / 5655 - Constitutional no acute distress - *Routine HEENT Exam Head: Present: normocephalic Eye: Present: EOMI, PERRL ENT: Present: mucous membranes dry - *Routine Neck Exam Present: supple - *Routine Respiratory Exam Absent: respiratory distress - *Routine Cardiovascular Exam Present: RRR - *Routine Abdominal Exam Present: soft - *Routine Skin Exam Present: intact - *Routine Neurological Exam Present: alert, oriented X3, CN II-XII intact - Routine Psychiatric Exam Present: normal affect Assessment and Plan (1) Hip pain, bilateral Status: Chronic Category: Medical Code(s): M25.551 - Pain in right hip; M25.552 - Pain in left hip (2) Osteoarthritis of right hip Status: Chronic Category: Medical Code(s): M16.11 - Unilateral primary osteoarthritis, right hip (3) Status post total hip replacement, right Status: Acute Category: Surgical Code(s): Z96.641 - Presence of right artificial hip joint (4) Tobacco use Status: Chronic Category: Social Hx Code(s): Z72.0 - Tobacco use
--- NOTE | 2020-05-13 10:05 | PC.NURSE ---
Pt is sleeping in intervals, denies any needs/concerns at this time.
--- NOTE | 2020-05-13 11:07 | PC.NURSE ---
[id number] Pt up walking with physical therapy, tolerated activity well. Pt ambulated in hallway with walker. Pt now back to the bed with abductor pillow in place.
--- NOTE | 2020-05-13 11:49 | PC.NURSE ---
Pt will need a rolling walker rather than a cane due to gait and mobility issues.
--- NOTE | 2020-05-13 11:54 | SW/DCPLANNER ---
Addendum entered by Chelsea Steel 05/13/20 13:29: Alona with [facility] has reviewed patient information and stated that rolling walker will be delivered to patients room tomorrow morning. Addendum entered by Chelsea Steel 05/13/20 12:05: Fax number to send PT other to [facility] in [place] is [phone]. Original Note: I have spoke with this patient regarding discharge plans once medically stable for discharge. Patient resides at home alone with is planning to discharge to her daughters house in [facility] at time of discharge. Patient was speaking with daughter at time of visit: patient and daughter agreed they would like to use [facility] in [place] (phone: [phone]) outpatient PT at time of discharge. Patient has also stated that she will need a rolling walker (patient prefer Benny). Patient information and order has been faxed to [facility] for a rolling walker. Patient will also be set up with outpatient PT thru [facility] at time of discharge. Discharge date is unknown at this time.
[2020-05-13 14:19] LABS: Hematocrit 27.3 % (37.0-47.0)
[2020-05-13 14:37] LABS: Hemoglobin 9.1 g/dL (12.2-16.2)
--- NOTE | 2020-05-13 14:54 | HMH.ORTHPN ---
Subjective Date: 05/13/20 Time: 12:30 Principal diagnosis: Status post total hip arthroplasty, right Interval history: Patient is status post right total hip arthroplasty post op day #1. Patient is lying down on the bed; she says she is doing well and reports no problems. Patient has minimal pain and says it's well-controlled with medication. No history of any nausea or vomiting. No history of any cough, chest pain, shortness of breath or palpitations. Patient says she is eating and drinking well. No history of any distal tingling or numbness. She says she has started physical therapy and mobilizing well with the walker. She is being transfused 1 unit of PRBC for low postoperative H&H. PN: Obj Ex Vital signs: Temp Pulse Resp BP Pulse Ox 97.5 F L 51 L 16 146/67 H 98 05/13/20 13:00 05/13/20 13:00 05/13/20 13:00 05/13/20 13:00 05/13/20 13:00 Narrative: Laboratory Results - last 24 hr 05/13/20 07:25: WBC 6.6, RBC 2.82 L, Hgb 7.8 L*, Hct 24.1 L, MCV 85.6, MCH 27.7, MCHC 32.4, RDW 16.5, Plt Count 161, MPV 10.2, Neut % (Auto) 61.8, Lymph % (Auto) 30.4, [place] % (Auto) 5.8, Eos % (Auto) 1.7, Baso % (Auto) 0.3, Neut # (Auto) 4.1, Lymph # (Auto) 2.0, [place] # (Auto) 0.4, Eos # (Auto) 0.1, Baso # (Auto) 0.0 05/13/20 07:25: Sodium 132 L, Potassium 4.1, Chloride 100, Carbon Dioxide 28, Anion Gap 8.1, BUN 10, Creatinine 0.90, Estimated Creat Clear 38, Estimated GFR 63, Est GFR ( Amer) 76, Glucose 90, Calcium 8.2 L 05/13/20 08:56: Blood Type O Positive, Antibody Screen Negative, Crossmatch (AHG) See Detail 05/13/20 14:08: Hgb 9.1 L D, Hct 27.3 L Intake & Output 05/11/20 05/12/20 05/13/20 05/14/20 11:59 11:59 11:59 11:59 Intake Total 6805 / 6805 754 / 754 Output Total 1350 / 1350 Balance 5455 / 5455 754 / 754 Exam General appearance: alert, active, awake, no acute distress Cardiovascular: regular rate & rhythm, normal peripheral pulses Respiratory: No respiratory distress noted, speaks in full sentences ABD: soft and non tender Neuro: alert, awake, oriented x 3 Psych: Appropriate mood and affect On examination of the lower extremities the limb lengths are equal. She has abduction foam between the legs. Thigh and calf are soft and nontender. On examination of the right hip the dressings are clean, dry and intact. No soakage or strike through noted. Distal pulses are 2+. Distal sensation is intact to light touch throughout. No motor deficits noted distally. Postoperative check x-ray satisfactory with good alignment of the total hip arthroplasty components. No complications noted on the x-rays. - Urinary Catheter Management Taylor Cath placed during this visit: no Progress Note: A&P (1) Hip pain, bilateral Status: Chronic (2) Osteoarthritis of right hip Status: Chronic (3) Status post total hip replacement, right Status: Acute (4) Tobacco use Status: Chronic (5) Postoperative anemia due to acute blood loss Status: Acute Assessment and Plan for All Diagnoses:: I have reviewed the clinical findings and progress with the patient. Patient is doing well and reports no problems. She is receiving 1 unit of PRBC and to have recheck H&H after completion. Patient is mobilizing well weightbearing as tolerated on the right side with the walker and to continue the same. Continue DVT prophylaxis. Continue abduction pillow when in bed and continue standard precautions for the posterior approach hip replacement. Discontinue IV fluids, SOFTWARE CONFIGURATION ANALYST. Case management consult regarding discharge planning. Continue medical management as per Dr. Quiroz.
--- NOTE | 2020-05-13 17:27 | PC.NURSE ---
1640 RN reassessment completed at this time. Pt has done very well today. Pt receiving PRN pain medication about Q4H for c/o pain in right hip with report of good relief each time. Pt up with PT today x2 to ambulate in hallway with rollling walker. Pt has been out of bed several times today to void on BSC, tolerating activity well, voiding without any difficulty. Dressing to right hip is C/D/I. Pt refuses ice pack to hip this shift, abductor pillow in place. Lung sounds CTA, no c/o SOA. Abd soft and nontender with BS active in all quads. Pt reports passing gas, no BM this shift. Pt is tolerating regular diet well with no N/V. Pt received 1 unit of PRBCs today per MD order, tolerated transfusion well. Call light within reach, will continue to monitor.
[2020-05-14 04:00] VITALS: BP 134/62; PULSE 59; RESP 17; TEMP 36.8; O2SAT 97
--- NOTE | 2020-05-14 04:30 | PC.NURSE ---
PT HAS RESTED WELL THIS SHIFT, PAIN WELL CONTROLLED WITH PO PAIN MEDICATION. VITAL SIGNS STABLE, PT ABLE TO AMBULATE TO [facility] WITH MINIMAL ASSISTANCE. VOIDING WITHOUT DIFFICULTY. BOWEL SOUNDS ACTIVE X 4 QUADS[address]UCTION PILLOW IN PLACE WHILE IN BED. LUNGS CTAB, USING INCENTIVE SPIROMETER. DRESSING TO RIGHT HIP C/D/I. PT A&O X4, CALL LIGHT WITHIN REACH. WILL CONTINUE TO MONITOR
--- NOTE | 2020-05-14 07:05 | PC.NURSE ---
REPORT RECEIVED FROM Raul IQBAL RN.
[2020-05-14 07:53] VITALS: BP 138/67; PULSE 56; RESP 18; TEMP 36.9; O2SAT 98
[2020-05-14 07:53] LABS: Basophils % 0.2 % (0.1-2.0); Eosinophils # 0.1 K/mm3 (0.0-0.4); Eosinophils % 0.6 % (0.1-12.0); Hemoglobin 9.7 g/dL (12.2-16.2); Lymphocytes # 1.9 K/mm3 (0.7-4.5); Lymphocytes % 18.9 % (10-50); Mean Corpuscular HGB Conc 33.4 g/dL (31.8-35.4); Mean Corpuscular Hemoglobin 28.6 pg (27.0-31.2); Mean Corpuscular Volume 85.6 fl (81-99); Mean Platelet Volume 10.3 fl (7.4-10.4); Monocytes # 0.7 K/mm3 (0.1-1.0); Monocytes % 6.9 % (1.7-9.3); Neutrophils # 7.4 K/mm3 (1.8-7.8); Neutrophils % 73.4 % (37.0-80.0); Platelet Count 151 K/mm3 (142-424); Red Blood Count 3.39 M/mm3 (4.20-5.40); Red Cell Distribution Width 16.3 % (11.5-17.5); White Blood Count 10.1 K/mm3 (4.8-10.8)
[2020-05-14 07:59] VITALS: PULSE 56; O2SAT 98
--- NOTE | 2020-05-14 08:03 | PC.NURSE ---
PT ASSESSED AT THIS TIME. BILATERAL LUNG SOUNDS CLEAR. NO EDEMA NOTED. BILATERAL PEDAL AND TIBIAL PULSES EQUAL AND EASILY PALPATED. PT STATES THAT SHE IS PASSING GAS BUT NO BM. PT STATES THAT THIS IS NORMAL FOR HER AND SHE HAS BEEN TAKING A STOOL SOFTNER SHE IS RECEIVING ORAL NARCOTIC PAIN MEDICATION. PT STATES PAIN 6/10 ON VERBAL SCALE STATING AN ACHING PAIN IN HER R HIP. PT IS ABLE TO TRANSFER TO [facility] AND TOLERATED THIS WELL. PT IS VOIDING LARGE AMOUNTS OF CLEAR STRAW URINE. ICISIONAL R HIP DRESSING IS C/D/I. WILL CONTINUE TO OBSERVE.
[2020-05-14 08:04] LABS: Anion Gap 8.9 mEq/L (5-15); Blood Urea Nitrogen 7 mg/dl (7-17); Calcium 8.7 mg/dl (8.4-10.2); Carbon Dioxide 25 mmol/L (22.0-30.0); Chloride 105 mmol/L (98-107); Creatinine Clearance Estimated 38 mL/min (50-200); Estimated Glomerular Filt Rate 72 ml/min (>60); GFR (African American) 87 ML/MIN (>60); Glucose 99 mg/dl (74-100); Potassium 3.9 mmoL/L (3.5-5.1); Sodium 135 mmol/L (136-145)
--- NOTE | 2020-05-14 08:48 | PC.NURSE ---
PHYSICAL THERAPY AMBULATING PT AROUND UNIT AT THIS TIME. ROLLING WALKER USED AND PT TOLERATING WELL.
--- NOTE | 2020-05-14 09:00 | PC.NURSE ---
DR. SANDS AT BEDSIDE.
--- NOTE | 2020-05-14 10:07 | HMH.ACPN2 ---
Internal Medicine - PN: Subj *Date: 05/14/20 *Time: 10:07 Interval history: Patient sitting up in bed, she reports she is feeling great and ready to be discharged. Anticipate discharge home today per Ortho, patient is in agreement to this Exam Vital signs and Labs for Last 24 Hours: Temp Pulse Resp BP Pulse Ox 98.4 F 56 L 18 138/67 98 05/14/20 07:53 05/14/20 07:59 05/14/20 07:53 05/14/20 07:53 05/14/20 07:59 Laboratory Results - last 24 hr 05/13/20 08:56: Blood Type O Positive, Antibody Screen Negative, Crossmatch (AHG) See Detail 05/13/20 14:08: Hgb 9.1 L D, Hct 27.3 L 05/14/20 06:40: WBC 10.1 D, RBC 3.39 L, Hgb 9.7 L, Hct 29.0 L, MCV 85.6, MCH 28.6, MCHC 33.4, RDW 16.3, Plt Count 151, MPV 10.3, Neut % (Auto) 73.4, Lymph % (Auto) 18.9, [place] % (Auto) 6.9, Eos % (Auto) 0.6, Baso % (Auto) 0.2, Neut # (Auto) 7.4, Lymph # (Auto) 1.9, [place] # (Auto) 0.7, Eos # (Auto) 0.1, Baso # (Auto) 0.0 05/14/20 06:40: Sodium 135 L, Potassium 3.9, Chloride 105, Carbon Dioxide 25, Anion Gap 8.9, BUN 7 D, Creatinine 0.80, Estimated Creat Clear 38, Estimated GFR 72, Est GFR ( Amer) 87, Glucose 99, Calcium 8.7 I & O for Last 24 hours: Intake & Output 05/11/20 05/12/20 05/13/20 05/14/20 23:59 23:59 23:59 23:59 Intake Total 2300 / 2300 5259 / 5259 Output Total 350 / 350 3800 / 3800 Balance 1950 / 1950 1459 / 1459 - Constitutional no acute distress, thin - *Routine HEENT Exam Head: Present: normocephalic Eye: Present: EOMI ENT: Present: mucous membranes dry - *Routine Neck Exam Present: trachea midline. Absent: JVD, tracheal deviation - *Routine Respiratory Exam Present: wheezes - *Routine Cardiovascular Exam Present: RRR. Absent: irregular rhythm - *Routine Abdominal Exam Present: soft, normoactive bowel sounds. Absent: tenderness, firm - *Routine Extremities Exam Present: pulses intact. Absent: full ROM, calf tenderness - *Routine Skin Exam Present: dry, warm, wounds. Absent: intact, cyanosis Comments: Center right hip clean dry and intact - *Routine Neurological Exam Present: alert, oriented X3. Absent: altered mental status - Routine Psychiatric Exam Present: normal affect, normal thought process. Absent: auditory hallucinations, visual hallucinations Assessment and Plan (1) Hip pain, bilateral Status: Chronic Category: Medical Code(s): M25.551 - Pain in right hip; M25.552 - Pain in left hip (2) Osteoarthritis of right hip Status: Chronic Category: Medical Code(s): M16.11 - Unilateral primary osteoarthritis, right hip (3) Status post total hip replacement, right Status: Acute Category: Surgical Code(s): Z96.641 - Presence of right artificial hip joint (4) Tobacco use Status: Chronic Category: Social Hx Code(s): Z72.0 - Tobacco use (5) Hyperlipidemia LDL goal <100 Status: Acute Category: Medical Code(s): E78.5 - Hyperlipidemia, unspecified (6) Hypertension Status: Chronic Qualifiers: Hypertension type: essential hypertension Qualified Code(s): I10 - Essential (primary) hypertension Category: Medical Code(s): I10 - Essential (primary) hypertension (7) CAD (coronary artery disease) Status: Chronic Qualifiers: Coronary Disease-Associated Artery/Lesion type: [place] artery [place] vs. transplanted heart: [place] heart Associated angina: without angina Qualified Code(s): I25.10 - Atherosclerotic heart disease of [place] coronary artery without angina pectoris Category: Medical Code(s): I25.10 - Atherosclerotic heart disease of [place] coronary artery without angina pectoris - Assessment and plan all Dx Assessment and Plan for all problems:: Rounded with Dr. Quiroz, all orders per Dr. Quiroz: 1. Anticipate discharge home today 2. Follow-up with PCP in 2 weeks
--- NOTE | 2020-05-14 10:20 | PC.NURSE ---
DR. CHARLTON AT BEDSIDE AT THIS TIME. DRESSING CHANGED AND NEW DRESSING APPLIED.
--- NOTE | 2020-05-14 10:36 | HMH.DCSUM ---
General - General Admission date:: 05/12/20 Discharge date: 05/14/20 HPI HPI: Patient is a 65-year-old female who has osteoarthritis of her right hip unresponsive to conservative management. She was admitted to hospital following an uncomplicated primary right total hip arthroplasty today. She has had bilateral hip pain for many years which have gradually gotten worse. She localizes the pain to anterior and lateral aspects of both hip joints with radiation into both thighs. She says her symptoms are worse on the right side than the left. She rates her right hip pain a constant 7 out of 10 and a 10 out of 10 at its worst. She states she has tried physical therapy, local steroid injections, NSAIDs, icing and heat in the past with little to no relief. She states walking, twisting, turning and standing for long periods aggravate her pain. She reports night pain and sleep disturbance. She reports difficulty with activities of daily living and she uses a cane to walk with. She also reports the right side giving out frequently and is at risk of falls and injuring herself. She says she can barely walk 100 yards without discomfort. No history of any previous hip surgery. No history of any knee pain on either side. She reports occasional low back pain that occasionally radiates down the back of her thigh to her foot on the right side. No history of any neurological deficits distally. She states she is disabled due to her eye surgery and does not work. Her medical history includes hypertension, hyperlipidemia, vitamin D deficiency, osteoporosis, GERD, coronary artery disease, neuropathic pain and chronic tobacco abuse. She is a current everyday smoker for a long time. She has history of chronic hep C. A right total hip arthroplasty is indicated to reduce the risk of falls, improve her pain, mobility and quality of life. The surgical and nonsurgical alternatives were discussed in detail with the patient as well as the risks and benefits of the surgery. Please refer to my office note for full details. Hospital Course Hospital Course: Following uncomplicated primary total hip arthroplasty patient was admitted to the inpatient [facility] and has progressed well. Her postoperative check x-ray was satisfactory with good alignment and fixation of the components. She was advised to ambulate weightbearing as tolerated on the right side. Patient managed this very well using the walker. Her pain is well controlled with oral analgesics. Her surgical incision is clean and dry without any active discharge or signs of infection. Her distal neurovascular status is intact. No clinical evidence of DVT. Patient is eating and drinking well without any problems. Patient is medically stable at the time of discharge and was medically cleared for discharge by the physical therapist. The dressings were changed on the second postoperative day and the wound is healthy and healing well. No signs of any erythema, induration or discharge. Her neurovascular status in both lower extremities is intact. Pedal pulses 2+ bilaterally and fully sensate distally. No clinical evidence of DVT noted. Patient was cleared for discharge by physical therapy. On the day of discharge, the wound is clean and dry. The patient's vital signs have been stable throughout and he is afebrile at the time of discharge. She is being discharged home with family and home health for postoperative rehab. Condition at discharge: improved and stable. Treatments and Procedures: Total hip arthroplasty, right hip; date of surgery 05/12/2020 Objective Vital signs: Temp Pulse Resp BP Pulse Ox 98.4 F 56 L 18 138/67 98 05/14/20 07:53 05/14/20 07:59 05/14/20 07:53 05/14/20 07:53 05/14/20 07:59 no acute distress - *Routine HEENT Exam Head: Present: normocephalic Eye: Present: EOMI ENT: Present: mucous membranes moist - *Routine Neck Exam Present: supple - *Routine Respiratory Exam Presen
--- NOTE | 2020-05-14 11:05 | SW/DCPLANNER ---
PATIENT IS DISCHARGING HOME TODAY WITH DAUGHTER THAT RESIDES IN [facility] AND WILL BE DOING OUT PATIENT REHAB SERVICES THERE.. DAUGHTER IS ON HER WAY TO PICK PATIENT UP AND HER ROLLING WALKER HAS BEEN DELIVERED TO HER ROOM.. WILL REQUEST PATIENT TO BE SEEN IN THE AM IF POSSIBLE...
--- NOTE | 2020-05-14 11:50 | PC.NURSE ---
discharge instructions gone over with pt at this time. questions encouraged and answered.
--- NOTE | 2020-05-14 11:55 | PC.NURSE ---
pt wheelchaired to daughter's vehicle at this time x1 [facility] staff.
== END 2020-05-14 11:55 | disposition home or self-care (01) | DRG 470 ==
LOC: OB 11:43
PROVIDERS: Admitting Provider Orthopaedic Surgery; PCP Emergency Medicine; Visit Provider Orthopaedic Surgery
PROC: 0SR904A Replacement of Right Hip Joint with Ceramic on Polyethylene Synthetic Substitute, Uncemented, Open Approach (ICD-10-PCS; CPT 27130; principal; 2020-05-12 10:00)
DX: M16.11 Unilateral primary osteoarthritis, right hip (principal); D62 Acute posthemorrhagic anemia; I25.10 Atherosclerotic heart disease of native coronary artery without angina pectoris; I10 Essential (primary) hypertension; Z72.0 Tobacco use; M25.551 Pain in right hip; E55.9 Vitamin D deficiency, unspecified
CPT/HCPCS: 27130; 36415; 73502; 80048; 80053; 81001; 85014; 85018; 85025; 86328; 86850; 96374; 97110; 97116; 97161; 97165; 97530; C1713; C1776; J3370; P9016

== ENCOUNTER → 2020-05-27 13:15 | Outpatient (CLI) | payer MEDICARE, SELFPAY ==
--- NOTE | 2020-05-27 13:22 | XR_ITS ---
PROCEDURE: XR HIP RT 2-3V W/PELVIS CLINICAL INDICATION: sp RT total hip arthroplasty, dos 05/12/20 Follow-up hip arthroplasty COMPARISON: CR XR HIP RT 2-3V W/PELVIS from 01/21/2020 CR XR HIP LT 2-3V W/PELVIS from 01/21/2020 CR XR HIP RT 2-3V W/PELVIS from 05/12/2020 FINDINGS: Status post total right hip arthroplasty. There is good alignment with no evidence of orthopedic complications. There are vascular calcifications and surgical clips in the pelvis as well as severe osteoarthritis of the left hip. Sclerotic focus overlies the right ilium and may be due to a bone island. IMPRESSION: Status post right hip arthroplasty with good alignment Dictated by: Abiel Mary MD 05/27/2020 13:42 Abiel Mary MD in [place] 05/27/2020 13:42
== END ==
LOC: RAD 13:17
PROVIDERS: PCP Emergency Medicine; Visit Provider Orthopaedic Surgery
DX: Z96.641 Presence of right artificial hip joint (principal); M25.551 Pain in right hip
CPT/HCPCS: 73502

== ENCOUNTER → 2020-08-13 14:05 | Outpatient (CLI) | payer MEDICARE, SELFPAY ==
--- NOTE | 2020-08-13 14:08 | XR_ITS ---
PROCEDURE: XR HIP RT 2-3V W/PELVIS CLINICAL INDICATION: s/p RT total hip Follow-up hip replacement COMPARISON: CR XR HIP RT 2-3V W/PELVIS from 05/27/2020 FINDINGS: S/p total hip replacement on the right. There is good alignment no evidence of orthopedic complication. There is dense vascular calcification. There is severe osteoarthritic changes of the left hip. Surgical clips are present in the pelvic region on both sides. IMPRESSION: Good alignment status post total right hip replacement Dictated by: Abiel Mary MD 08/13/2020 14:40 Abiel Mary MD in [place] 08/13/2020 14:40
== END ==
PROVIDERS: PCP Emergency Medicine; Visit Provider Orthopaedic Surgery
DX: Z96.641 Presence of right artificial hip joint (principal); M25.551 Pain in right hip
CPT/HCPCS: 73502

== ENCOUNTER → 2020-09-10 14:21 | Outpatient (CLI) | payer MEDICARE, SELFPAY ==
[2020-09-10 15:13] LABS: Iron 92 ug/dL (37-170)
[2020-09-10 15:19] LABS: Basophils # 0.1 K/mm3 (0-0.2); Basophils % 0.9 % (0.1-2.0); Eosinophils # 0.3 K/mm3 (0.0-0.4); Eosinophils % 3.9 % (0.1-12.0); Hematocrit 39.3 % (37.0-47.0); Hemoglobin 12.6 g/dL (12.2-16.2); Lymphocytes # 2.5 K/mm3 (0.7-4.5); Lymphocytes % 39.4 % (10-50); Mean Corpuscular HGB Conc 32.1 g/dL (31.8-35.4); Mean Corpuscular Hemoglobin 30.6 pg (27.0-31.2); Mean Corpuscular Volume 95.1 fl (81-99); Mean Platelet Volume 10.7 fl (7.4-10.4); Monocytes # 0.4 K/mm3 (0.1-1.0); Monocytes % 5.4 % (1.7-9.3); Neutrophils # 3.2 K/mm3 (1.8-7.8); Neutrophils % 50.3 % (37.0-80.0); Platelet Count 132 K/mm3 (142-424); Red Blood Count 4.13 M/mm3 (4.20-5.40); Red Cell Distribution Width 14.6 % (11.5-17.5); White Blood Count 6.4 K/mm3 (4.8-10.8)
[2020-09-10 15:47] LABS: Total Iron Binding Capacity 330 ug/dL (265-497)
[2020-09-10 16:07] LABS: Ferritin 18.7 ng/ml (11.1-264)
== END ==
PROVIDERS: Visit Provider Emergency Medicine
DX: R53.83 Other fatigue (principal); D62 Acute posthemorrhagic anemia
CPT/HCPCS: 82728; 83540; 83550; 85025

== ENCOUNTER → 2020-11-18 15:07 | Outpatient (CLI) | payer MEDICARE, SELFPAY ==
--- NOTE | 2020-11-18 15:10 | XR_ITS ---
PROCEDURE: XR HIP RT 2-3V W/PELVIS CLINICAL INDICATION: sp RT RY, sx 05/12/20 COMPARISON: CR XR HIP RT 2-3V W/PELVIS from 08/13/2020 FINDINGS: S/p total hip replacement on the right with good alignment. No obvious complications. There is vascular calcification, surgical clips, and moderate to severe osteoarthritic changes of the left hip. IMPRESSION: Good alignment status post right hip replacement Dictated by: Abiel Mary MD 11/18/2020 15:38 Abiel Mary MD in [place] 11/18/2020 15:38
== END ==
PROVIDERS: PCP Emergency Medicine; Visit Provider Orthopaedic Surgery
DX: Z96.641 Presence of right artificial hip joint (principal); M25.551 Pain in right hip
CPT/HCPCS: 73502

== ENCOUNTER → 2020-12-10 13:41 | Outpatient (CLI) | payer MEDICARE, SELFPAY ==
--- NOTE | 2020-12-10 13:42 | MM_ITS ---
PROCEDURE INFORMATION: Exam: MG Screening 3D Mammography Exam date and time: 12/10/2020 1:42 PM Age: 65 years old Clinical indication: screening mammogram TECHNIQUE: Imaging protocol: Screening tomosynthesis and 2D mammography including computer-aided detection (CAD) when performed. COMPARISON: No relevant prior studies available. FINDINGS: MAMMOGRAPHY: Breast composition: The breast tissue is heterogeneously dense, which may obscure small masses. Mass: None. Architectural distortion: No new or suspicious architectural distortion. Calcifications: No new or suspicious calcifications are present Asymmetric density: No new or suspicious asymmetric density is present Skin thickening: None. Axillary adenopathy: None. IMPRESSION: No mammographic evidence of malignancy. Recommend annual screening mammography unless otherwise clinically indicated. ASSESSMENT: BI-RADS category 1: Negative
== END ==
PROVIDERS: PCP Emergency Medicine; Visit Provider Emergency Medicine
DX: Z12.31 Encounter for screening mammogram for malignant neoplasm of breast (principal)
CPT/HCPCS: 77063; 77067

== ENCOUNTER → 2021-03-18 14:09 | Outpatient (CLI) | payer MEDICARE, SELFPAY ==
--- NOTE | 2021-03-18 14:14 | XR_ITS ---
PROCEDURE: XR HIP RT 2-3V W/PELVIS CLINICAL INDICATION: s/p RT RY; SX: 05/12/20 COMPARISON: CR XR HIP RT 2-3V W/PELVIS from 11/18/2020 FINDINGS: S/p total hip replacement. Good alignment. No evidence of orthopedic complication. AP view of the pelvis shows moderate osteoarthritic change of the left hip. There is diffuse vascular calcification. IMPRESSION: Good alignment status post total right hip prosthesis placement Dictated by: Abiel Mary MD 03/18/2021 15:24 Abiel Mary MD in [place] 03/18/2021 15:24
== END ==
PROVIDERS: PCP Emergency Medicine; Visit Provider Orthopaedic Surgery
DX: Z96.641 Presence of right artificial hip joint (principal); M25.551 Pain in right hip
CPT/HCPCS: 73502

== ENCOUNTER → 2021-05-06 13:55 | Outpatient (CLI) | payer MEDICARE, SELFPAY | PROVIDERS: Visit Provider Nurse Practitioner | DX: Z20.822 Contact with and (suspected) exposure to COVID-19 (principal) | CPT/HCPCS: C9803; U0003; U0005 ==

== ENCOUNTER → 2021-12-08 11:15 | Outpatient (CLI) | payer MEDICARE, OTHER, SELFPAY ==
--- NOTE | 2021-12-08 | CA_ITS ---
APPROVED REPORT Exam: Pharmacologic Technologist: Melissa Oates, Ht: 5 ft 5 in Wt: 104 lbs BSA: 1.50 m2 HR: 47 bpm BP: 146/74 mmHg Rhythm: sinus maryanne, T wave abns inferiorly and laterally Medical History Medical History: HTN, Hyperlipidemia Medications: Aspirin,,,,, Atenolol,,,,, Gabapentin,,,,, Atorvastatin,,,,, Iron,,,,, Benazepril,,,,, Vit D3,,,,, Trazodone,,,,, ColaCE,,,,, Cardiac Risk Factors: HTN, Hyperlipidemia, Smoking Stress Test Details Test: LEXISCAN HR Resting HR: 45 bpm Max Heart Rate (APMHR): 155.613245 bpm Max HR Achieved: 96 bpm Target HR (85% APMHR): 131.291959 bpm % of APMHR: 61.94 Recovery HR: 91 bpm BP Resting BP: 146/74 mmHg Max BP: 175/100 mmHg Recovery BP: 138.0/73.0 mmHg ECG Resting ECG: sinus maryanne, T wave abns inferiorly and laterally Clinical Exercise duration: 04:09 min Highest Stage Achieved: Exercise capacity: 1.0 METs Stress ECG Conclusion During lexiscan pt experinced mild chest discomfort, nausea, vomitting. No CP noted. Occasional PAC, rare PVC. Mild exaggeration of baseline abns. Unremarkable lexiscan stress. Myoview images reported separately. Electronically signed by : Caden Nails MD 12/09/2021 06:34:11
--- NOTE | 2021-12-08 11:23 | NM_ITS ---
APPROVED REPORT Exam: Nuclear Stress Test Indication: chest pain..short of breath Patient Location: Outpatient Stress Tech: Melissa KINNEY Tech:Adore hWeat, ARRT, RT (R)(N) Ht: 5 ft 5 in Wt: 101 lbs Bra Size: b HR: 45 bpm BP: 146/74 mmHg BSA: 1.48 m2 TID: 1.02 BMI: 16.8 History: chest pain..short of breath Procedure: Patient received a 0.4 mg of intravenous Lexiscan, resting heart rate 45 bpm, resting blood pressure 146/74 mmHg, with Lexiscan maximum heart rate achived was 96 bpm which is Less than 85 % of the maximum predicted heart rate and blood pressure was 175/100 mmHg. With Lexiscan, patient denied any complaint of chest pain. Electrocardiogram Resting electrocardiogram showed sinus rhythm, with Lexiscan less than 1.[address] segment depression noted from the baseline EKG. The EKG portion of the Lexiscan is nondiagnostic. Cardiac Stress and Resting SPECT Images: Cardiac Stress and Resting SPECT images were obtained using technetium 99m Myoview 30.9 mCi stress and 10.58 mCi at rest. Gated SPECT for analysis of segmental wall motion and calculation of the ejection fraction was obtained, prone images were also obtained. Cardiac stress and resting SPECT images show reversible ischemia involving the apex, computer derived ejection fraction is 49% with no regional wall motion abnormality, right ventricle is normal size and contractility. Conclusion: 1. The EKG portion of the Lexiscan is nondiagnostic. 2. Scintigraphic evidence of reversible ischemia involving the apex, computer derived ejection fraction 49% with no regional wall motion abnormality, right ventricle is normal size and contractility. 3. Abnormal Lexiscan Myoview study. Electronically signed by : Caden Nails MD 12/09/2021 06:37:47
--- NOTE | 2021-12-08 12:36 | CA_ITS ---
APPROVED REPORT EXAM: Comprehensive 2D, Doppler, and color-flow Echocardiogram Quality Control Inspector: Isi Shi RVT Ht: 5 ft 5 in Wt: 104lbs BSA: 1.50 BP: 120/60 mmHg Indications: ANGINA,CAD,GERD,HTN,SMOKER,HLD 2D Dimensions LVOT 1.86 cm (M/F) 1.5-2.5 LA Volume 31.30 mL LA Volume Index 21.00 mL/m2 (M/F) 16-34 M-Mode Dimensions RVDd 2.42 cm (0.9-2.6) LA Diam 3.28 cm (1.9-4.0) LVDd 4.48 cm (3.5-5.7) Ao Diam 2.83 cm (2.0-3.7) LVDs 2.94 cm (3.5-5.7) IVSd 0.81 cm (0.6-1.1) PWd 0.86 cm (0.6-1.1) EF (Teich) 63.60% FS 34.40% EDV (Teich) 91.50 mL TAPSE 2.02 (<1.7) ESV (Teich) 33.30 mL LV Diastology E Decel Time 193.00 (160-240 msec) E/A Ratio 0.9 MED E' 8.80 (< 7 cm/sec) E'/MED E' Ratio 7.99 (>14) LAT E' 8.50 (<10 cm/sec) E/LAT E' Ratio 8.27 (>14) Aortic Valve AO Peak GR. 4.10 mmHg Mitral Valve MV E Max Cas. 70.00 (40-130 cm/s) MV A Velocity 77.00 (40-130 cm/s) E/A Ratio 0.91 MV Decel. Time 193.00 (160-240 ms) MV PHT 57.00 ms Pulmonary Valve PV Peak Velocity 79.00 (50-150 cm/s) Tricuspid Valve TR P. Velocity 220.00 cm/s RAP Estimate 10.00 mmHg RVSP 29.40 mmHg Left Ventricle Left atrium is mildly enlarged, left ventricle is normal size mild concentric left ventricular hypertrophy, estimated ejection fraction 55% with no regional wall motion abnormality, grade 1 diastolic dysfunction seen without tissue Doppler evidence of raise left atrial pressure. Right Ventricle Right atrium and right ventricle are mildly enlarged with normal contractility. Aortic Valve Aortic valve is minimally thickened and calcified without aortic stenosis or aortic insufficiency. Mitral Valve Mitral valve grossly normal, there is trace mitral regurgitation. Tricuspid Valve Tricuspid valve grossly normal, there is trace tricuspid regurgitation, tricuspid regurgitation jet velocity is inadequate for calculation of the right ventricular systolic pressure. Pulmonic Valve Pulmonic valve is poorly visualized. Great Vessels Aortic root is normal size. Inferior vena cava is mildly dilated with normal inspiratory collapse. Pericardium No significant pericardial effusion noted. Conclusion 1. Mild biatrial enlargement, normal left ventricular size, mild concentric left ventricular hypertrophy, estimated ejection fraction 55% with no regional wall motion abnormality, grade 1 diastolic dysfunction seen without tissue Doppler evidence of raise left atrial pressure. 2. Trace mitral and tricuspid regurgitation. 3. No significant pericardial effusion. 4. Inferior vena cava is mildly dilated with normal inspiratory collapse. Electronically signed by : Caden Nails MD 12/09/2021 05:42:00
--- NOTE | 2021-12-08 13:15 | HMH.ITSHM ---
Current Home Medications as stated by this patient Lynsey Farooq or personal service representative. []TRAZODONE OXYCODONE GABAPENTIN FLUTICASONE IRON DOCUSATE VITAMIN D3 BENAZEPRIL ATORVASTATIN ATENOLOL ASA
== END ==
PROVIDERS: PCP Emergency Medicine; Visit Provider Nurse Practitioner Family
DX: E78.2 Mixed hyperlipidemia (principal); I10 Essential (primary) hypertension; R94.31 Abnormal electrocardiogram [ECG] [EKG]; Z72.0 Tobacco use; I20.8 Other forms of angina pectoris; I20.0 Unstable angina
CPT/HCPCS: 78452; 93017; 93306; A9502; J0280; J2785

== ENCOUNTER → 2022-01-13 11:45 | Outpatient (CLI) | payer MEDICARE, SELFPAY ==
[2022-01-13 17:59] LABS: Benzodiazepines Screen,Urine Negative ng/ml (<200)
[2022-01-13 18:00] LABS: Amphetamine/Metha Screen,Urine Negative ng/ml (<1000); Barbiturates Screen,Urine Negative ng/ml (<200)
[2022-01-13 18:01] LABS: Cannabinoid Screen,Urine Positive ng/ml (<50)
[2022-01-13 18:02] LABS: Cocaine Screen,Urine Negative ng/ml (<300); Methadone Screen,Urine Negative ng/ml (<300)
[2022-01-13 18:03] LABS: Opiate Screen,Urine Negative ng/ml (<300)
[2022-01-13 18:04] LABS: Phencyclidine Screen,Urine Negative ng/ml (<25)
== END ==
PROVIDERS: PCP Emergency Medicine; Visit Provider Emergency Medicine
DX: M79.2 Neuralgia and neuritis, unspecified (principal); Z79.899 Other long term (current) drug therapy
CPT/HCPCS: 80305

== ENCOUNTER → 2022-01-22 07:51 | Day surgery (SDC) | payer MEDICARE, SELFPAY ==
[2022-01-22] VITALS (13 sets, daily range): BP systolic 105–169; BP diastolic 52–81; PULSE 47–54; RESP 16–18; TEMP 36.6–36.8; O2SAT 92–97; BMI 16.2
--- NOTE | 2022-01-22 | IR_ITS ---
APPROVED REPORT Patient Location: Outpatient Cook Helper Juice: JENNIFER Price RT (R) PROCEDURES Left heart catheterization Left ventriculogram Selective coronary angiogram INDICATION Known coronary artery disease, Progressive angina pectoris Informed consent was obtained prior to the procedure. COMPLICATIONS None Estimated Blood Loss: Less than 10 mls TECHNIQUE One percent lidocaine used to anesthetize the right anterior aspect of the wrist. The right radial artery was accessed via the Seldinger technique. A 6 Swiss sheath was placed in the right radial artery. 2.5 mg of verapamil, 800 mcg of nitroglycerin, 1mg Lidocaine and 5000 U Heparin were given through the arterial sheath. The papa catheter was also used to perform left heart catheterization, left ventriculogram and selective coronary angiogram. At the end of the procedure the sheath was removed good hemostasis was achieved using Traclet band, patient was transferred to the postop holding area in stable condition. ANGIOGRAPHIC RESULTS The left main artery Short and normal The left anterior descending artery Is patent throughout its entire course. The proximal portion is widely patent while the mid segment has a mild 20 to 30% concentric haziness followed by an additional mid vessel 20% stenosis The circumflex artery Is large and dominant and gives rise to 4 obtuse marginal arteries. There are diffuse 10 to 20% luminal irregularities The right coronary artery Is a nondominant vessel and has a proximal 30% stenosis followed by a stent followed by an additional hazy 50 to 60% stenosis The WEBB ventriculogram reveals Preserved at 55% The left ventricular end-diastolic pressure 10 mmHg IMPRESSION Coronary disease as described above Preserved ejection fraction Normal left ventricular end-diastolic pressure PLAN 1. Continue medical management Electronically signed by : Gonzalo Arce MD 01/22/2022 12:28:07
[2022-01-22 08:02] LABS: Coronavirus 19, PCR Not Detected (NotDetected); Influenza A, PCR Not Detected (NotDetected); Influenza B, PCR Not Detected (NotDetected)
[2022-01-22 08:15] LABS: Basophils # 0.1 K/mm3 (0-0.2); Basophils % 0.6 % (0.1-2.0); Eosinophils # 0.3 K/mm3 (0.0-0.4); Hematocrit 46.2 % (37.0-47.0); Hemoglobin 14.1 g/dL (12.2-16.2); Lymphocytes % 35.6 % (10-50); Mean Corpuscular HGB Conc 30.4 g/dL (31.8-35.4); Mean Corpuscular Hemoglobin 31.7 pg (27.0-31.2); Mean Corpuscular Volume 104.2 fl (81-99); Mean Platelet Volume 10.3 fl (7.4-10.4); Monocytes # 0.4 K/mm3 (0.1-1.0); Monocytes % 4.8 % (1.7-9.3); Neutrophils # 4.6 K/mm3 (1.8-7.8); Platelet Count 196 K/mm3 (142-424); Red Blood Count 4.44 M/mm3 (4.20-5.40); Red Cell Distribution Width 14.3 % (11.5-17.5); White Blood Count 8.4 K/mm3 (4.8-10.8)
[2022-01-22 08:22] LABS: Anion Gap 14.1 mEq/L (5-15); Blood Urea Nitrogen 18 mg/dl (7-17); Carbon Dioxide 28 mmol/L (22.0-30.0); Chloride 105 mmol/L (98-107); Creatinine Clearance Estimated 39 mL/min (50-200); Estimated Glomerular Filt Rate 56 ml/min (>60); GFR (African American) 67 ML/MIN (>60); Glucose 105 mg/dl (74-100); Potassium 4.1 mmoL/L (3.5-5.1); Sodium 143 mmol/L (136-145)
== END | disposition home or self-care (01) ==
PROVIDERS: Nurse Practitioner Family; PCP Emergency Medicine; Visit Provider Internal Medicine
DX: B18.2 Chronic viral hepatitis C (principal); E78.2 Mixed hyperlipidemia; E78.5 Hyperlipidemia, unspecified; I10 Essential (primary) hypertension; I25.118 Atherosclerotic heart disease of native coronary artery with other forms of angina pectoris; R06.09 Other forms of dyspnea; R94.30 Abnormal result of cardiovascular function study, unspecified; Z95.5 Presence of coronary angioplasty implant and graft; F17.210 Nicotine dependence, cigarettes, uncomplicated; Z20.822 Contact with and (suspected) exposure to COVID-19
CPT/HCPCS: 36415; 80048; 85025; 93458; 99152; C1725; C1769; C9803; J1644; Q9967; U0003; U0005

== ENCOUNTER → 2022-03-17 13:32 | Outpatient (CLI) | payer MEDICARE, SELFPAY ==
--- NOTE | 2022-03-17 13:36 | XR_ITS ---
FINAL REPORT CLINICAL HISTORY: rt hip pain FINDINGS: RIGHT HIP Two views of the right hip including an AP pelvis demonstrate no acute fracture or dislocation. There is right hip total joint prosthesis. There are advanced hypertrophic changes of osteoarthritis at the lateral left hip margin. There are dense vascular calcifications in the abdominal aorta and iliac vessels. IMPRESSION: Postoperative changes of the right hip and degenerative changes of the left hip with no acute bony abnormality. Reviewed, Interpreted and Dictated by Blake Gilbert MD Transcribed by Roxann Ruby Authenticated and [facility]
== END ==
LOC: RAD 13:34
PROVIDERS: PCP Emergency Medicine; Visit Provider Physician Assistant Surgical
DX: M16.11 Unilateral primary osteoarthritis, right hip (principal)
CPT/HCPCS: 73502

== ENCOUNTER → 2022-04-21 16:23 | Outpatient (CLI) | payer MEDICARE, SELFPAY ==
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
== END ==
LOC: RAD 16:24
PROVIDERS: PCP Emergency Medicine; Visit Provider Emergency Medicine
DX: M54.9 Dorsalgia, unspecified (principal); M54.50 Low back pain, unspecified; M16.11 Unilateral primary osteoarthritis, right hip
CPT/HCPCS: 72148; 76376

== ENCOUNTER → 2022-08-27 14:42 | Outpatient (CLI) | payer MEDICARE, SELFPAY ==
[2022-08-27 18:36] LABS: Benzodiazepines Screen,Urine Negative ng/ml (<200)
[2022-08-27 18:37] LABS: Amphetamine/Metha Screen,Urine Negative ng/ml (<1000); Barbiturates Screen,Urine Negative ng/ml (<200)
[2022-08-27 18:38] LABS: Cannabinoid Screen,Urine Positive ng/ml (<50)
[2022-08-27 18:39] LABS: Cocaine Screen,Urine Negative ng/ml (<300); Methadone Screen,Urine Negative ng/ml (<300)
[2022-08-27 18:40] LABS: Opiate Screen,Urine Negative ng/ml (<300)
[2022-08-27 18:41] LABS: Phencyclidine Screen,Urine Negative ng/ml (<25)
== END ==
PROVIDERS: PCP Emergency Medicine; Visit Provider Emergency Medicine
DX: M54.16 Radiculopathy, lumbar region (principal)
CPT/HCPCS: 80305

== ENCOUNTER → 2023-01-05 14:50 | Outpatient (CLI) | payer MEDICARE, SELFPAY ==
[2023-01-05 15:20] LABS: Basophils % 0.5 % (0.1-2.0); Eosinophils # 0.2 K/mm3 (0.0-0.4); Eosinophils % 3.6 % (0.1-12.0); Hematocrit 35.8 % (37.0-47.0); Hemoglobin 11.5 g/dL (12.2-16.2); Lymphocytes # 1.7 K/mm3 (0.7-4.5); Lymphocytes % 30.2 % (10-50); Mean Corpuscular HGB Conc 32.2 g/dL (31.8-35.4); Mean Corpuscular Hemoglobin 33.3 pg (27.0-31.2); Mean Corpuscular Volume 103.6 fl (81-99); Mean Platelet Volume 10.5 fl (7.4-10.4); Monocytes # 0.4 K/mm3 (0.1-1.0); Monocytes % 7.2 % (1.7-9.3); Neutrophils # 3.3 K/mm3 (1.8-7.8); Neutrophils % 58.5 % (37.0-80.0); Platelet Count 169 K/mm3 (142-424); Red Blood Count 3.45 M/mm3 (4.20-5.40); Red Cell Distribution Width 14.1 % (11.5-17.5); White Blood Count 5.6 K/mm3 (4.8-10.8)
[2023-01-05 16:24] LABS: Free T4 (Free Thyroxine) 0.91 ng/dl (0.78-2.19)
[2023-01-05 17:03] LABS: Alanine Aminotransferase 15 U/L (12-78); Albumin Level 3.6 g/dl (3.5-5.0); Alkaline Phosphatase 108 U/L (38-126); Anion Gap 12.5 mEq/L (5-15); Aspartate Amino Transferase 40 U/L (14-36); Bilirubin,Direct 0.1 mg/dl (0.0-0.4); Bilirubin,Indirect 0.2 mg/dL (0.0-0.9); Bilirubin,Total 0.3 mg/dl (0.2-1.3); Bilirubin,Unconjugated 0.2 mg/dL (0.0-1.1); Blood Urea Nitrogen 15 mg/dl (7-17); Calcium 8.7 mg/dl (8.4-10.2); Carbon Dioxide 25 mmol/L (22.0-30.0); Chloride 107 mmol/L (98-107); Chol/HDL Ratio 1.9 (1-3.5); Cholesterol 91 mg/dl (140-200); Estimated Glomerular Filt Rate 63 ml/min (>60); GFR (African American) 76 ML/MIN (>60); Glucose 76 mg/dl (74-100); HDL Cholesterol 48 mg/dl (40-60); Potassium 4.5 mmoL/L (3.5-5.1); Sodium 140 mmol/L (136-145); Total Protein,Serum 6.4 g/dl (6.3-8.2); Triglycerides 56 mg/dl (30-150); VLDL Cholesterol 11 mg/dL (0-40)
[2023-01-05 17:14] LABS: Direct LDL Cholesterol 33.51 mg/dL (100-129)
[2023-01-05 17:34] LABS: Thyroid Stimulating Hormone 7.26 uIU/mL (0.465-4.68)
== END ==
PROVIDERS: PCP Emergency Medicine; Visit Provider Nurse Practitioner
DX: B18.2 Chronic viral hepatitis C (principal); E78.5 Hyperlipidemia, unspecified; I25.10 Atherosclerotic heart disease of native coronary artery without angina pectoris; I63.9 Cerebral infarction, unspecified; R06.00 Dyspnea, unspecified; R07.89 Other chest pain; Z72.0 Tobacco use; Z95.5 Presence of coronary angioplasty implant and graft; I11.9 Hypertensive heart disease without heart failure; E11.9 Type 2 diabetes mellitus without complications
CPT/HCPCS: 36415; 80048; 80061; 80076; 84439; 84443; 85025

== ENCOUNTER → 2023-01-26 07:44 | Outpatient (CLI) | payer MEDICARE, SELFPAY ==
--- NOTE | 2023-01-26 07:44 | NM_ITS ---
APPROVED REPORT Exam: Nuclear Stress Test Indication: chest pain..soa..fatigue..high cholerterol..high BP..Family Hx Patient Location: Outpatient Stress Tech: Sarah Rodriguez IN Tech:Lizeth SparksJENNIFER RT(R)(N) Ht: 5 ft 5 in Wt: 87 lbs Bra Size: 34b HR: 63 bpm BP: 142/75 mmHg BSA: 1.39 m2 Rhythm: NSR TID: 1.03 BMI: 14.4 History: chest pain..soa..fatigue..high cholerterol..high BP..Family Hx Procedure: Patient received 0.4 mg of intravenous Lexiscan, resting heart rate 63 bpm, resting blood pressure 142/75 mmHg, with Lexiscan maximum heart rate achieved was 93 bpm which is 85 % of the maximum predicted heart rate and blood pressure was 173/90 mmHg. With Lexiscan, patient denied any complaint of chest pain. Cardiac Stress and Resting SPECT Images: Cardiac Stress and Resting SPECT images were obtained using technetium 99m Myoview 30.4 mCi stress and 10.23 mCi at rest. Resting and stress imaging in supine and prone positions demosntrate a small-sized, mild, fixed perfusion defect in the basal septal LV wall. Gated imaging demonstrates mild reduction in global LV systolic function. LVEF is calculated at 49%. Conclusion: Small-sized, mild, fixed perfusion defect in the basal septal LV wall. No evidence of reversible ischemia. Gated imaging demonstrates mild reduction in global LV systolic function. LVEF is calculated at 49%. Further evaluation of the LVEF in the setting of discrepancy between the TTE (EF=55%) vs. SPECT imaging (EF=49%) is recommended by cardiac MRI (cardiomyopathy protocol). Electronically signed by : Missy William MD 01/30/2023 20:00:45
--- NOTE | 2023-01-26 09:53 | US_ITS ---
FINAL REPORT CLINICAL HISTORY: claudication, smoker, CAD, stents, HTN, HLD COMPARISON: None FINDINGS: ANKLE-BRACHIAL PRESSURE INDICES Pressure indices are as follows: RIGHT LOWER EXTREMITY: Ankle-brachial pressure index: 0.58 Comments: Moderately decreased LEFT LOWER EXTREMITY: Ankle-brachial pressure index: 0.77 Comments: Moderately decreased IMPRESSION: There is evidence of moderate arterial occlusive disease. Recommend anatomic imaging with CTA or catheter directed angiogram. Reviewed, Interpreted and Dictated by Blake Gilbert MD Transcribed by Mary Barajas Authenticated and [facility]
--- NOTE | 2023-01-26 09:53 | CA_ITS ---
APPROVED REPORT EXAM: Comprehensive 2D, Doppler, and color-flow Echocardiogram Health Promotion Manager: Sonia Braden CRT Ht: 5 ft 5 in Wt: 91lbs BSA: 1.42 BP: 100/49 mmHg Indications: Abnormal ECG, Chest Pain, Hyperlipidemia, Hypertension/HDD, bradycardia, hep c, smoker, stents 2D Dimensions LVOT 1.65 cm (M/F) 1.5-2.5 LA Volume 24.30 mL LA Volume Index 17.11 mL/m2 (M/F) 16-34 M-Mode Dimensions RVDd 2.59 cm (0.9-2.6) LA Diam 2.77 cm (1.9-4.0) LVDd 3.98 cm (3.5-5.7) Ao Diam 3.56 cm (2.0-3.7) LVDs 3.14 cm (3.5-5.7) IVSd 1.31 cm (0.6-1.1) PWd 0.96 cm (0.6-1.1) EF (Teich) 43.50% FS 21.10% EDV (Teich) 69.20 mL TAPSE 2.30 (<1.7) ESV (Teich) 39.10 mL LV Diastology E Decel Time 237.00 (160-240 msec) E/A Ratio 1.1 MED E' 9.80 (< 7 cm/sec) MED A' 10.70 cm/s E'/MED E' Ratio 6.69 (>14) LAT E' 5.90 (<10 cm/sec) LAT A' 7.30 cm/s E/LAT E' Ratio 11.12 (>14) Aortic Valve AI PHT 408.00 ms AO Peak GR. 6.30 mmHg Mitral Valve MV E Max Cas. 66.00 (40-130 cm/s) MV A Velocity 60.00 (40-130 cm/s) E/A Ratio 1.10 MV Decel. Time 237.00 (160-240 ms) MV PHT 69.00 ms Pulmonary Valve PV Peak Velocity 106.00 (50-150 cm/s) Tricuspid Valve TR P. Velocity 290.00 cm/s RAP Estimate 10.00 mmHg RVSP 43.70 mmHg Left Ventricle The left ventricle is normal size. The left ventricular systolic function is normal. The left ventricular ejection fraction is within the normal range. There is normal left ventricular wall thickness. There is mild hypokinesis of the septal, anteroseptal, and inferoseptal LV celaya. The left ventricular diastolic function is normal. LVEF is 55%. Right Ventricle The right ventricle is normal size. The right ventricular systolic function is normal. Atria The left atrium size is mildly dilated. The right atrium size is normal. There is no Doppler evidence of interatrial shunt. Aortic Valve The aoritc valve is mildly thickened. There is no aortic valvular stenosis. No aortic regurgitation is present. Mitral Valve The mitral valve is mildly thickened. No evidence of mitral valve stenosis. Trace mitral regurgitation. Tricuspid Valve The tricuspid valve leaflets are thin and pliable. Mild tricuspid regurgitation. RVP is 25-30 mmHg. Pulmonic Valve The pulmonary valve is normal in structure. Trace pulmonic regurgitation. Great Vessels The aortic root is normal in size. The ascending aorta is not well visualized. IVC is normal in size and collapses >50% with inspiration. Pericardium There is no pericardial effusion. Other Information Study Quality: Fair Conclusion Normal biventricular systolic function. Mild hypokinesis of the septal, anteroseptal, and inferoseptal LV celaya. Mild LA dilation. No significant valvular stenosis or regurgitation. Electronically signed by : Missy William MD 01/29/2023 12:56:34
--- NOTE | 2023-01-26 10:17 | CA_ITS ---
APPROVED REPORT Exam: Pharmacologic Technologist: Sarah Rodriguez, Ht: 5 ft 5 in Wt: 91 lbs BSA: 1.42 m2 HR: 54 bpm BP: 142/75 mmHg Rhythm: SINUS BRADYCARDIA, SHORT ND INTERVAL, 0.[address] DEPRESSION IN LATERAL LEADS Indications: Chest pain, Shortness of Air Medical History Medical History: HTN, Hyperlipidemia Medications: Aspirin,,,,, Atenolol,,,,, Trazadone,,,,, Gabapentin,,,,, Atorvastatin,,,,, ClonAZEPAM,,,,, Benazepril,,,,, Erythromycin,,,,, BREo-ellipta,,,,, Allergies: ACETAMINOPHEN,HYDROCODONE Cardiac Risk Factors: HTN, Hyperlipidemia Stress Test Details Test: LEXISCAN Reversal agent Aminophyline 75.0 mg, given intravenously for nausea, mild chest pain, headache. HR Resting HR: 63 bpm Max Heart Rate (APMHR): 154 bpm Max HR Achieved: 93 bpm Target HR (85% APMHR): 131 bpm % of APMHR: 60 Recovery HR: 93 bpm BP Resting BP: 142.0/75.0 mmHg Max BP: 173.0/90.0 mmHg Recovery BP: 150.0/67.0 mmHg ECG Resting ECG: SINUS BRADYCARDIA, SHORT ND INTERVAL, 0.[address] DEPRESSION Stress ECG: NO ST CHANGES Arrhythmia: PVCs, PACs Clinical Exercise duration: 04:00 min Highest Stage Achieved: Stress ECG Conclusion DURING INFUSION OF LEXISCAN PATIENT HAD SOA, NAUSEA, MILD HEAD DISCOMFORT WITH MILD CHEST TIGHTNESS. 75MG SLOW IV PUSH OF AMINOPHYLLINE GIVEN. ECTOPY: OCCASIONAL PVC. FREQUENT PAC'S. STRESS: NO SIGNIFICANT ST-T CHANGES. CONCLUSION NON-DIAGNOSTIC LEXISCAN STRESS DUE TO BASELINE ABNORMALITIES. MYOVIEW IMAGES REPORTED SEPARATELY Test Summary REST . . . . . . . Resting REST 04:08 . . 63 . 142/ 75 . . Stage 1 . . . . . . . Myoview Injected Stage 1 01:00 . . 75 . . . . Stage 2 01:00 . . 79 . . . . Stage 3 01:00 . . 86 . 170/ 86 . . Stage 4 . . . . . . . Nausea Stage 4 01:00 . . 72 . . . Stop exercise at 04:00 RECOVERY 01:00 . . 93 . . . . RECOVERY 02:00 . . 82 . . . . RECOVERY 03:00 . . 66 . . . . RECOVERY 04:00 . . 63 . . . . RECOVERY 05:00 . . 61 . 150/ 67 . . RECOVERY 06:00 . . 59 . 151/ 73 . . RECOVERY 06:12 . . 59 . 151/ 73 . . Electronically signed by : Missy William MD 01/30/2023 19:55:58
== END ==
LOC: RAD 07:44
PROVIDERS: PCP Emergency Medicine; Visit Provider Nurse Practitioner
DX: B18.2 Chronic viral hepatitis C (principal); E78.5 Hyperlipidemia, unspecified; I10 Essential (primary) hypertension; I25.10 Atherosclerotic heart disease of native coronary artery without angina pectoris; R06.09 Other forms of dyspnea; R07.89 Other chest pain; Z72.0 Tobacco use; Z95.5 Presence of coronary angioplasty implant and graft; I73.9 Peripheral vascular disease, unspecified
CPT/HCPCS: 78452; 93017; 93306; 93923; A9502; J2785

== ENCOUNTER 2023-02-04 07:59 | Day surgery (SDC) | payer MEDICARE, SELFPAY ==
[2023-02-04] VITALS (11 sets, daily range): BP systolic 117–164; BP diastolic 52–79; PULSE 44–56; RESP 17–20; TEMP 37; O2SAT 94–100; BMI 14.8
--- NOTE | 2023-02-04 07:19 | IR_ITS ---
APPROVED REPORT Patient Location: Outpatient PROCEDURES Right femoral arterial access Right retrograde femoral angiogram Advancement of the wire with attempted angioplasty of the right external iliac artery. INDICATION Occluded abdominal aorta and bilateral iliac disease, [place] claudication class III-IV, Peripheral artery disease Informed consent was obtained prior to the procedure. COMPLICATIONS NONE Estimated Blood Loss: LESS THAN 10 ML TECHNIQUE 1% lidocaine used anesthetize right groin the right femoral artery was accessed via the Salinger technique and a 4 Kitt[place] sheath is placed in the right femoral artery. Retrograde angiography was performed. A long advantage wire was advanced under fluoroscopic guidance into the occlusion in the right external iliac artery. A 4 [place] JR4 catheter was used to provide support and advance the wire to the abdominal aorta. The catheter was advanced to the abdominal aorta where was identified there was an aneurysmal calcification. The wire would not easily recannulate the abdominal aorta therefore it was decided because of patient's extremely small body habitus with infrarenal abdominal aortic aneurysm the patient would not benefit from ongoing attempts at revascularization. At this point the apparatus was removed the patient was transferred to the postop holding area in stable condition for sheath removal ANGIOGRAPHIC RESULTS Distal abdominal aorta is occluded dense calcification with aneurysmal dilatation is identified in the infrarenal abdominal aorta Right common iliac artery is occluded with dense calcification throughout the entire vessel Right external iliac artery is patent as is the right common femoral artery IMPRESSION Chronically occluded densely calcified distal abdominal aorta with angiographic evidence of aneurysmal dilatation as well as occluded densely calcified bilateral common iliac arteries PLAN 1. Recommend abdominal aortic ultrasound to determine size of AAA 2. Consider CTA of the distal abdominal aorta 3. It is unlikely patient is either percutaneous or surgical candidate based on her 39 kg and high risk anatomy. Her vessels are small with both short and long-term patency of the stent would being abysmal. I doubt patient is a surgical candidate based on her comorbidities, ongoing smoking, and extremely cachectic body habitus 4. Recommend tobacco cessation 5. Risk factor modification Electronically signed by : Gonzalo Arce MD 02/04/2023 13:10:02
[2023-02-04 08:44] LABS: Anion Gap 15.3 mEq/L (5-15); Blood Urea Nitrogen 5 mg/dl (7-17); Calcium 9.1 mg/dl (8.4-10.2); Carbon Dioxide 21 mmol/L (22.0-30.0); Chloride 107 mmol/L (98-107); Creatinine Clearance Estimated 35 mL/min (50-200); Estimated Glomerular Filt Rate 72 ml/min (>60); GFR (African American) 87 ML/MIN (>60); Glucose 87 mg/dl (74-100); Potassium 4.3 mmoL/L (3.5-5.1); Sodium 139 mmol/L (136-145)
[2023-02-04 08:51] LABS: Basophils % 0.4 % (0.1-2.0); Eosinophils # 0.2 K/mm3 (0.0-0.4); Eosinophils % 2.6 % (0.1-12.0); Hemoglobin 12.3 g/dL (12.2-16.2); Lymphocytes # 1.4 K/mm3 (0.7-4.5); Lymphocytes % 22.4 % (10-50); Mean Corpuscular HGB Conc 31.5 g/dL (31.8-35.4); Mean Corpuscular Hemoglobin 31.6 pg (27.0-31.2); Mean Corpuscular Volume 100.3 fl (81-99); Mean Platelet Volume 11.6 fl (7.4-10.4); Monocytes # 0.4 K/mm3 (0.1-1.0); Monocytes % 5.9 % (1.7-9.3); Neutrophils # 4.4 K/mm3 (1.8-7.8); Neutrophils % 68.7 % (37.0-80.0); Platelet Count 143 K/mm3 (142-424); Red Blood Count 3.89 M/mm3 (4.20-5.40); White Blood Count 6.5 K/mm3 (4.8-10.8)
== END 2023-02-04 15:02 | disposition home or self-care (01) ==
PROVIDERS: PCP Emergency Medicine; Visit Provider Internal Medicine
DX: I71.40 Abdominal aortic aneurysm, without rupture, unspecified (principal); I70.213 Atherosclerosis of native arteries of extremities with intermittent claudication, bilateral legs; F17.210 Nicotine dependence, cigarettes, uncomplicated; Z79.899 Other long term (current) drug therapy; I77.1 Stricture of artery
CPT/HCPCS: 36247; 75625; 80048; 85025; 99152; 99153; C1725; C1769; J1644; Q9966

== ENCOUNTER → 2023-03-01 08:30 | Outpatient (CLI) | payer MEDICARE, SELFPAY ==
--- NOTE | 2023-03-01 08:53 | CT_ITS ---
FINAL REPORT CLINICAL HISTORY: Distal abdominal aorta is occluded dense calcifica COMPARISON: None FINDINGS: Thin section axial CT images of the abdomen, pelvis and lower extremities were obtained with contrast. Multiplanar reformatted images were also obtained and reviewed. A right hip arthroplasty is present which somewhat obscures detail overlying the right side of the pelvis in particular. ABDOMEN AND PELVIS: There is moderate to large mural plaque or thrombus in the abdominal aorta with a patent lumen of 14 mm in diameter. There is no abdominal aortic aneurysm or dissection. The celiac axis and proximal superior mesenteric artery are unremarkable. The right renal artery is unremarkable. However on the left side there is a high-grade 90% stenosis of the proximal left renal artery. The inferior mesenteric artery is occluded at its origin, and reconstituted several centimeters distal via collateral vessels. The right common iliac artery is occluded, and is reconstituted at the level of the external iliac artery, which continues with multifocal significant stenoses. There is moderate stenosis of the left common iliac artery of approximately 60% luminal diameter. The left external iliac artery is patent with mild stenosis. RIGHT LOWER EXTREMITY: There is approximately 50% stenosis of the common femoral artery, and the deep femoral artery is patent. There is probable high-grade stenosis of the proximal superficial femoral artery of approximately 70% or greater luminal diameter stenosis. There are multiple small stenoses in the superficial femoral artery. The right popliteal artery is patent. There is single-vessel runoff of the peroneal artery, with the posterior and anterior tibial arteries occluded. LEFT LOWER EXTREMITY: There is approximately 50% stenosis of the common femoral artery, with a patent deep femoral artery. The superficial femoral artery is patent with multiple mild and moderate stenoses. The popliteal artery is patent, and there is 3 vessel runoff to the lower leg. OTHER FINDINGS: There are multiple presumed renal cysts present bilaterally. However, there are small densities in the left kidney, one a 10 mm mass in the upper pole, the other a 7 mm posterior left kidney mass, that are not simple cysts. The uterus has been surgically removed. IMPRESSION: Significant stenosis in the proximal left renal artery, 90% or greater. Occlusion of the inferior mesenteric artery at its origin, with reconstitution several centimeters distal via collaterals. On the right side there is common iliac artery occlusion, with reconstitution of the right external iliac artery. There are multifocal stenoses in the common iliac artery and 50% stenosis of the common femoral artery. There is probable high-grade stenosis of the proximal superficial femoral artery, 70% or greater. There is single-vessel runoff in the right leg. On the left side there is moderate stenosis in the left common iliac artery approximately 60%, with mild stenoses in the left external iliac artery. There is approximately 50% stenosis of the common femoral artery, and there are multiple mild and moderate stenoses in the superficial femoral artery. There is three-vessel runoff on the left side to the lower leg. Left renal masses that are not completely compatible with renal cysts. Would recommend either CT renal protocol or MRI renal protocol for further evaluation. Reviewed, Interpreted and Dictated by Terrence Pineda III, MD Transcribed by Jessica Howard Authenticated and [facility]
[2023-03-01 09:04] LABS: Blood Urea Nitrogen 6 mg/dl (7-17); Estimated Glomerular Filt Rate 72 ml/min (>60); GFR (African American) 87 ML/MIN (>60)
[2023-03-01 21:00] LABS: Amphetamine/Metha Screen,Urine Negative ng/ml (<1000); Barbiturates Screen,Urine Negative ng/ml (<200)
[2023-03-01 21:01] LABS: Benzodiazepines Screen,Urine Negative ng/ml (<200); Cannabinoid Screen,Urine Positive ng/ml (<50)
[2023-03-01 21:02] LABS: Cocaine Screen,Urine Negative ng/ml (<300)
[2023-03-01 21:03] LABS: Methadone Screen,Urine Negative ng/ml (<300); Opiate Screen,Urine Negative ng/ml (<300)
[2023-03-01 21:04] LABS: Phencyclidine Screen,Urine Negative ng/ml (<25)
== END ==
PROVIDERS: PCP Emergency Medicine; Visit Provider Internal Medicine
DX: B18.2 Chronic viral hepatitis C (principal); E78.5 Hyperlipidemia, unspecified; I10 Essential (primary) hypertension; I25.10 Atherosclerotic heart disease of native coronary artery without angina pectoris; I42.9 Cardiomyopathy, unspecified; I70.0 Atherosclerosis of aorta; I73.9 Peripheral vascular disease, unspecified; R06.00 Dyspnea, unspecified; R68.89 Other general symptoms and signs; Z72.0 Tobacco use; Z95.5 Presence of coronary angioplasty implant and graft; M79.2 Neuralgia and neuritis, unspecified; N39.0 Urinary tract infection, site not specified
CPT/HCPCS: 36415; 75635; 80305; 82565; 84520; 87086; Q9967

== ENCOUNTER → 2023-03-01 17:00 | Outpatient (CLI) | payer MEDICARE, SELFPAY ==
[2023-03-01 20:37] LABS: Amphetamine/Metha Screen,Urine Negative ng/ml (<1000)
[2023-03-01 20:38] LABS: Barbiturates Screen,Urine Negative ng/ml (<200)
[2023-03-01 20:39] LABS: Benzodiazepines Screen,Urine Negative ng/ml (<200); Cannabinoid Screen,Urine Positive ng/ml (<50)
[2023-03-01 20:40] LABS: Cocaine Screen,Urine Negative ng/ml (<300); Methadone Screen,Urine Negative ng/ml (<300)
[2023-03-01 20:41] LABS: Opiate Screen,Urine Negative ng/ml (<300)
[2023-03-01 20:42] LABS: Phencyclidine Screen,Urine Negative ng/ml (<25)
== END ==
LOC: LAB.DROPOF 17:01
PROVIDERS: PCP Emergency Medicine; Visit Provider Emergency Medicine
DX: I10 Essential (primary) hypertension; I25.10 Atherosclerotic heart disease of native coronary artery without angina pectoris; I70.0 Atherosclerosis of aorta; I42.8 Other cardiomyopathies; I73.9 Peripheral vascular disease, unspecified; E78.5 Hyperlipidemia, unspecified; R68.89 Other general symptoms and signs; Z79.899 Other long term (current) drug therapy; A49.8 Other bacterial infections of unspecified site
CPT/HCPCS: 36415; 75635; 80305; 82565; 84520; 87086; Q9967

== ENCOUNTER 2023-04-04 08:33 | Day surgery (SDC) | payer MEDICARE, SELFPAY ==
[2023-04-04 08:42] VITALS: BMI 14.3
[2023-04-04 09:14] VITALS: BP 138/93; PULSE 45; RESP 16; O2SAT 96
[2023-04-04 09:19] LABS: Basophils # 0.1 K/mm3 (0-0.2); Basophils % 0.7 % (0.1-2.0); Eosinophils # 0.3 K/mm3 (0.0-0.4); Eosinophils % 4.7 % (0.1-12.0); Hematocrit 37.7 % (37.0-47.0); Hemoglobin 12.5 g/dL (12.2-16.2); Lymphocytes % 44.9 % (10-50); Mean Corpuscular HGB Conc 33.2 g/dL (31.8-35.4); Mean Corpuscular Hemoglobin 32.3 pg (27.0-31.2); Mean Corpuscular Volume 97.2 fl (81-99); Mean Platelet Volume 10.6 fl (7.4-10.4); Monocytes # 0.4 K/mm3 (0.1-1.0); Monocytes % 6.1 % (1.7-9.3); Neutrophils % 43.7 % (37.0-80.0); Platelet Count 150 K/mm3 (142-424); Red Blood Count 3.88 M/mm3 (4.20-5.40); Red Cell Distribution Width 14.9 % (11.5-17.5); White Blood Count 6.8 K/mm3 (4.8-10.8)
[2023-04-04 09:24] LABS: Anion Gap 8.3 mEq/L (5-15); Blood Urea Nitrogen 13 mg/dl (7-17); Calcium 8.6 mg/dl (8.4-10.2); Carbon Dioxide 27 mmol/L (22.0-30.0); Chloride 106 mmol/L (98-107); Creatinine Clearance Estimated 34 mL/min (50-200); Estimated Glomerular Filt Rate 55 ml/min (>60); GFR (African American) 67 ML/MIN (>60); Glucose 89 mg/dl (74-100); Potassium 3.3 mmoL/L (3.5-5.1); Sodium 138 mmol/L (136-145)
== END 2023-04-04 12:16 | disposition home or self-care (01) ==
PROVIDERS: PCP Internal Medicine; Visit Provider Internal Medicine
DX: Z53.09 Procedure and treatment not carried out because of other contraindication (principal); I70.1 Atherosclerosis of renal artery
CPT/HCPCS: 80048; 85025

== ENCOUNTER 2023-04-19 12:47 | Emergency (ER) | payer MEDICARE, SELFPAY ==
[2023-04-19] VITALS (10 sets, daily range): BP systolic 125–156; BP diastolic 67–98; PULSE 50–64; RESP 13–20; TEMP -17.7–36.5; O2SAT 96–99; BMI 14.4
--- NOTE | 2023-04-19 12:47 | ECG_ITS ---
APPROVED REPORT Exam: Resting ECG HR:59 bpm ECG Measurements Heart Rate 59 AXES NE 117 P 87 QRSd 85 QRS 70 QT 402 T 89 QTc 402 Conclusion SINUS BRADYCARDIA WITH MARKED SINUS ARRHYTHMIA WITH SHORT NE INTERVAL ST DEVIATION AND MODERATE T-WAVE ABNORMALITY, CONSIDER ANTERIOR ISCHEMIA [-0.1+ mV T-WAVE IN V3/V4] ABNORMAL ECG UNCONFIRMED REPORT Electronically signed by : Cal Machado MD 04/19/2023 16:50:23
--- NOTE | 2023-04-19 12:57 | XR_ITS ---
FINAL REPORT CLINICAL HISTORY: CP COMPARISON: January 2020 FINDINGS: The heart size is normal. The mediastinum is within normal limits. There is no acute cardiopulmonary process. There is no pleural effusion. There is no pneumothorax. The bony thorax is intact. IMPRESSION: No acute cardiopulmonary process. Reviewed, Interpreted and Dictated by Blake Gilbert MD Transcribed by Mars Soto Authenticated and . [facility]
--- NOTE | 2023-04-19 12:58 | HMH.EDGENADL ---
Discharge Plan Disposition Patient Disposition: Home, Self-Care Condition: Good Prescriptions Prescriptions: No Action gabapentin 800 mg tablet 800 mg PO QID Qty: 120 1RF oxycodone-acetaminophen [Percocet] 7.5-325 mg tablet 1 tab PO TID PRN (Reason: pain) Qty: 90 0RF aspirin [Adult Low Dose Aspirin] 81 mg tablet,delayed release (DR/EC) 81 mg PO DAILY Hold Instructions: Resume on 06/24/20. Hold for 6 weeks while patient is on 325 mg of aspirin daily. trazodone 100 mg tablet See Rx Instructions .ROUTE .COMPLEX Qty: 30 0RF Rx Instructions: TAKE 1 TO 2 TABLET(S) BY MOUTH EVERY DAY AT BEDTIME FOR SLEEP atorvastatin 80 mg tablet See Rx Instructions .ROUTE .COMPLEX Rx Instructions: TAKE ONE TABLET BY MOUTH EVERY DAY FOR cholesterol benazepril 5 mg tablet See Rx Instructions .ROUTE .COMPLEX Rx Instructions: TAKE ONE TABLET BY MOUTH EVERY DAY FOR BLOOD PRESSURE atenolol 25 mg tablet See Rx Instructions .ROUTE .COMPLEX Rx Instructions: TAKE ONE TABLET BY MOUTH EVERY DAY FOR BLOOD PRESSURE erythromycin 5 mg/gram (0.5 %) ointment 1 applic ophthalmic (eye) QID fluticasone furoate-vilanterol [Breo Ellipta] 100-25 mcg/dose blister with device See Rx Instructions .ROUTE .COMPLEX Rx Instructions: INHALE 1 PUFF BY MOUTH EVERY DAY FOR copd Referrals Follow up/Referrals: Freedom Minor DO [Primary Care Provider] - See instructions Activity Restrictions/Add. Instructions Additional Instructions/Restrictions: At this time it was felt you are safe to be discharged home. If new or worsening symptoms please do not hesitate to return the emergency department. Please follow-up with cardiology as discussed. Clinical Impressions Clinical Impression: Chest pain Discharge ED Provider: Johnnie Koroma General Adult HPI <Glenna Watt MD - Last Filed: 04/19/23 15:28> General Chief complaint: Chest Pain Stated complaint: CP Time Seen by Provider: 04/19/23 12:53 Mode of Arrival: Ambulatory Source of Information: Patient Limitations: No Limitations Description of Symptoms (Recalled from ER Triage Doc. by RN): PT REPORTS SHARP INTERMITTENT CHEST PAIN UNDER LEFT BREAST THAT WOKE HER THIS AM. REPORTS RIGHT ARM PAIN. DENIES PAIN AT THIS TIME History of Present Illness HPI narrative: Patient has a PMHx significant for hypertension, CAD status post PCI, peripheral vascular disease who presents to the ED with complaints of chest pain. Patient notes that she woke up this morning around 230 with severe left-sided chest pain underneath her left breast. Patient reports that the chest pain is radiating to her right arm. Patient endorses pleuritic shortness of breath. Patient denies any fevers or chills. Patient does not wear any oxygen at baseline does not feel short of breath at this time. Related Data Home Medications Medication Instructions Recorded Confirmed aspirin 81 mg tablet,delayed 81 mg PO DAILY [facility] 12/25/18 03/23/23 release (Adult Low Dose Aspirin) atenolol 25 mg tablet See Rx Instructions .Route 02/04/23 03/23/23 .COMPLEX . atorvastatin 80 mg tablet See Rx Instructions .Route 02/04/23 03/23/23 .COMPLEX . benazepril 5 mg tablet See Rx Instructions .Route 02/04/23 03/23/23 .COMPLEX . erythromycin 5 mg/gram (0.5 %) eye 1 applic ophthalmic (eye) QID . 02/04/23 03/23/23 ointment fluticasone furoate 100 See Rx Instructions .Route 02/04/23 03/23/23 mcg-vilanterol 25 mcg/dose .COMPLEX . inhalation powder (Breo Ellipta) Previous Rx's Medication Instructions Recorded gabapentin 800 mg tablet 800 mg PO QID Pain #120 tabs 03/01/23 oxycodone-acetaminophen 7.5 mg-325 1 tab PO TID PRN pain #90 tabs 03/01/23 mg tablet (Percocet) trazodone 100 mg tablet See Rx Instructions .Route 03/30/23 .COMPLEX . #30 tabs Allergies Allergy/AdvReac Type Severity Reaction Status Date / Time acetaminophen [From Vicodin] AdvReac I
--- NOTE | 2023-04-19 13:01 | CT_ITS ---
FINAL REPORT TECHNIQUE: Thin section axial CT images were obtained from the lung apices to the upper abdomen. IV contrast was administered. MIP 3-D reformats were obtained. This study was performed with techniques to keep radiation doses as low as reasonably achievable (ALARA). Individualized dose reduction techniques using automated exposure control or adjustment of mA and/or kV according to the patient's size were employed. CLINICAL HISTORY: SOA, r/o PE FINDINGS: The heart size is normal. There is no adenopathy. There is no filling defect to suggest PE. There is no aortic dissection. There is no pericardial effusion. There is a 4 mm noncalcified nodule in the periphery of the right upper lobe on image 49 of series 6. No pleural effusion. Limited images of the upper abdomen demonstrate a partially visualized abdominal aortic aneurysm measuring up to 2.8 cm with circumferential mural thrombus. IMPRESSION: No pulmonary embolism. Partially visualized abdominal aortic aneurysm with circumferential mural thrombus. 4 mm right upper lobe nodule. Per Fleischner criteria recommend 1 year follow-up. Reviewed, Interpreted and Dictated by Blake Gilbert MD Transcribed by Mars Soto Authenticated and . [facility]
--- NOTE | 2023-04-19 13:02 | PC.NURSE ---
notified Kathy in radiology that Dr. Watt would like PE protocol vs CT chest w. Order changed in [facility]
[2023-04-19 13:16] LABS: Basophils % 0.4 % (0.1-2.0); Eosinophils % 0.5 % (0.1-12.0); Hematocrit 33.3 % (37.0-47.0); Hemoglobin 11.1 g/dL (12.2-16.2); Lymphocytes % 20.5 % (10-50); Mean Corpuscular HGB Conc 33.4 g/dL (31.8-35.4); Mean Corpuscular Hemoglobin 31.4 pg (27.0-31.2); Mean Platelet Volume 11.3 fl (7.4-10.4); Monocytes # 0.5 K/mm3 (0.1-1.0); Monocytes % 11.1 % (1.7-9.3); Neutrophils # 3.3 K/mm3 (1.8-7.8); Neutrophils % 67.5 % (37.0-80.0); Platelet Count 127 K/mm3 (142-424); Red Blood Count 3.54 M/mm3 (4.20-5.40); Red Cell Distribution Width 15.4 % (11.5-17.5); White Blood Count 4.9 K/mm3 (4.8-10.8)
--- NOTE | 2023-04-19 13:19 | PC.NURSE ---
rad at bedside for portable cxr
[2023-04-19 13:21] LABS: Chloride 104 mmol/L (98-107)
[2023-04-19 13:22] LABS: Sodium 137 mmol/L (136-145)
[2023-04-19 13:23] LABS: VBG Base Excess -2.3 mmol/L (-2.4-2.3); VBG Oxygen Saturation 72.2 % (50-70); VBG PH 7.31 mmol/L (7.31-7.41); VBG PO2 37.5 mmol/L (28-40); VBG Total CO2 25.5 mmol/L (23-27)
[2023-04-19 13:24] LABS: Alanine Aminotransferase 25 U/L (12-78); Alkaline Phosphatase 69 U/L (38-126); Aspartate Amino Transferase 31 U/L (14-36); Bilirubin,Total 0.3 mg/dl (0.2-1.3); Blood Urea Nitrogen 8 mg/dl (7-17); Creatinine Clearance Estimated 34 mL/min (50-200); Estimated Glomerular Filt Rate 55 ml/min (>60); GFR (African American) 67 ML/MIN (>60)
[2023-04-19 13:25] LABS: Albumin Level 4.1 g/dl (3.5-5.0); Albumin/Globulin Ratio 1.5 (1.1-1.8); Calcium 8.2 mg/dl (8.4-10.2); Carbon Dioxide 28 mmol/L (22.0-30.0); Globulin 2.8 g/dL (1.3-3.2); Glucose 113 mg/dl (74-100); Total Protein,Serum 6.9 g/dl (6.3-8.2)
[2023-04-19 13:34] LABS: NT Pro Brain Natriuretic Pep. 1090 pg/mL (0-125)
[2023-04-19 13:59] LABS: Troponin I < 0.01 ng/ml (0.00-0.034)
--- NOTE | 2023-04-19 15:36 | PC.NURSE ---
LUNCH TRAY PROVIDED FROM PT AND FAMILY
[2023-04-19 16:30] LABS: Troponin I < 0.01 ng/ml (0.00-0.034)
== END 2023-04-19 17:00 | disposition home or self-care (01) ==
PROVIDERS: Emergency Medicine; Emergency Provider Emergency Medicine; PCP Internal Medicine
DX: R07.9 Chest pain, unspecified (principal); M79.601 Pain in right arm; I25.118 Atherosclerotic heart disease of native coronary artery with other forms of angina pectoris; R06.02 Shortness of breath; I10 Essential (primary) hypertension; I73.9 Peripheral vascular disease, unspecified; F17.210 Nicotine dependence, cigarettes, uncomplicated
CPT/HCPCS: 71045; 71275; 80053; 82803; 83880; 84484; 85025; 93005; 96361; 96374; 99285; Q9967

== ENCOUNTER 2023-05-16 23:56 | Outpatient (CLI) | payer MEDICARE, SELFPAY ==
[2023-05-16 20:10] LABS: Alanine Aminotransferase 10 U/L (12-78); Albumin Level 3.2 g/dl (3.5-5.0); Alkaline Phosphatase 99 U/L (38-126); Aspartate Amino Transferase 19 U/L (14-36); Bilirubin,Total 0.2 mg/dl (0.2-1.3); Blood Urea Nitrogen 12 mg/dl (7-17); Calcium 7.9 mg/dl (8.4-10.2); Carbon Dioxide 28 mmol/L (22.0-30.0); Chloride 106 mmol/L (98-107); Estimated Glomerular Filt Rate 72 ml/min (>60); GFR (African American) 87 ML/MIN (>60); Globulin 3.1 g/dL (1.3-3.2); Glucose 77 mg/dl (74-100); Sodium 136 mmol/L (136-145); Total Protein,Serum 6.3 g/dl (6.3-8.2)
[2023-05-16 20:44] LABS: Thyroid Stimulating Hormone 3.48 uIU/mL (0.465-4.68)
== END 2023-05-16 23:59 ==
LOC: LAB.DROPOF 23:56
PROVIDERS: PCP Internal Medicine; Visit Provider Internal Medicine
DX: E05.90 Thyrotoxicosis, unspecified without thyrotoxic crisis or storm (principal); R53.83 Other fatigue
CPT/HCPCS: 80053; 84443

== ENCOUNTER 2023-08-02 11:35 | Outpatient (CLI) | payer MEDICARE, SELFPAY ==
[2023-08-02 12:34] LABS: Basophils # 0.1 K/mm3 (0-0.2); Basophils % 0.6 % (0.1-2.0); Eosinophils # 0.1 K/mm3 (0.0-0.4); Eosinophils % 1.2 % (0.1-12.0); Hematocrit 32.1 % (37.0-47.0); Lymphocytes # 1.6 K/mm3 (0.7-4.5); Lymphocytes % 17.7 % (10-50); Mean Corpuscular HGB Conc 34.5 g/dL (31.8-35.4); Mean Corpuscular Hemoglobin 34.3 pg (27.0-31.2); Mean Corpuscular Volume 99.5 fl (81-99); Mean Platelet Volume 10.6 fl (7.4-10.4); Monocytes # 0.5 K/mm3 (0.1-1.0); Neutrophils # 6.7 K/mm3 (1.8-7.8); Neutrophils % 74.5 % (37.0-80.0); Platelet Count 224 K/mm3 (142-424); Red Blood Count 3.22 M/mm3 (4.20-5.40); Red Cell Distribution Width 15.4 % (11.5-17.5); White Blood Count 8.9 K/mm3 (4.8-10.8)
[2023-08-02 12:52] LABS: Iron 40 ug/dL (37-170)
[2023-08-02 12:57] LABS: Chol/HDL Ratio 2.2 (1-3.5); Cholesterol 140 mg/dl (140-200); HDL Cholesterol 64 mg/dl (40-60); Triglycerides 59 mg/dl (30-150); VLDL Cholesterol 12 mg/dL (0-40)
[2023-08-02 13:02] LABS: Total Iron Binding Capacity 406 ug/dL (265-497)
[2023-08-02 13:04] LABS: Direct LDL Cholesterol 51.19 mg/dL (100-129)
[2023-08-02 13:29] LABS: Ferritin 18.4 ng/ml (11.1-264)
[2023-08-02 13:36] LABS: Hemoglobin A1C 5.1 % (4.0-6.0)
[2023-08-02 14:34] LABS: Vitamin B12 258 pg/mL (239-931)
[2023-08-02 14:36] LABS: Folate 7.53 ng/mL
[2023-08-04 12:17] LABS: Peripheral Smear Review Scanned Result
== END 2023-08-02 23:59 ==
LOC: LAB.DROPOF 11:36
PROVIDERS: PCP Internal Medicine; Visit Provider Internal Medicine
DX: E78.5 Hyperlipidemia, unspecified; E53.8 Deficiency of other specified B group vitamins; D50.9 Iron deficiency anemia, unspecified; R73.09 Other abnormal glucose
CPT/HCPCS: 80061; 82607; 82728; 82746; 83036; 83540; 83550; 85025